=== PATIENT | female | born 1955 | race Caucasian/White ===

== ENCOUNTER 2016-04-21 13:11 | Emergency (ER) | payer OTHER ==
[~2016-04-21] VITALS: Ht 165.1 cm; Wt 120.2 kg
[~2016-04-21 13:11] MED LIST: BIOTIN1000 MC1 PO; CHILDREN'S ASPI81 M1 PO; DOCUSATE100 MG PO; FLEXERIL10 MG PO; LANTUS SOL100 UNIT/1 SC; LISINOPRIL40 M1 PO; LYRICA150 M1 PO; METFORMIN HCL500 M2 PO; MULTIVITAMIN1 TAB PO; TRADJENTA5 M1 PO; TYLENOL #31 TAB PO; VITAMIN D-32000 UNIT PO; VITAMIN D50000 IU PO; XANAX0.5 MG PO
[2016-04-21 13:17] VITALS: BP 183/86
--- NOTE | 2016-04-21 14:01 | ED MVC/FALL/TRAUMA COMPLAINT ---
History of Present Illness General Chief Complaint: Fall Stated Complaint: FALL ON ICE OUTSIDE [facility] Source: patient Exam Limitations: no limitations Allergies Coded Allergies: NO KNOWN ALLERGIES (07/17/10) Reconcile Medications Alprazolam 0.5 MG TABLET 1 TAB PO DAILY NEEDED PRN ANXIETY (Reported) Aripiprazole (Abilify) 10 MG TABLET 1 TAB PO QPM MENTAL HEALTH (Reported) Aspirin (Children's Aspirin) 81 MG TAB.CHEW 1 TAB PO DAILY HEART HEALTH ( Reported) Biotin 1,000 MCG TAB.CHEW 1 TAB PO DAILY SUPPLEMENT (Reported) Cholecalciferol (Vitamin D3) (Vitamin D-3) 2,000 UNIT TABLET 1 TAB PO DAILY SUPPLEMENT (Reported) Insulin Glargine,Hum.rec.anlog (Lantus Solostar) (Unknown Strength) INSULN.PEN (Unknown Dose) SC QPM DM (Reported) Linagliptin (Tradjenta) 5 MG TABLET 1 TAB PO DAILY DM (Reported) Lisinopril 40 MG TABLET 1 TAB PO DAILY HEART (Reported) Metformin HCl (Metformin HCl ER) 500 MG TAB.ER.24 2 TAB PO DAILY DIABETES ( Reported) Pregabalin (Lyrica) 150 MG CAPSULE 1 CAP PO BID PAIN (Reported) Triage Note: 60 PAIN S/P FALL ON ICE. PT WAS GETTING OUT OF TAXI AND SLIPPED STRIKING L SIDED HEAD ON TAXI CAB. DENIES LOC. DENIES OTHER COMPLAINTS. SPEAKING CLEARLY WITH NO NEURO DEFICITS NOTED. Triage Nurses Notes Reviewed? yes HPI: This patient is a 60-year-old female who presented to the emergency department today brought in by ambulance for evaluation of head strike. The patient reported that she was getting out of the taxicab at [facility] just prior to arrival when she slipped on ice and struck the left side of her head on the taxi. She denied loss of consciousness. She reported that she does feel some pressure behind her eye and 7 out of 10 pain over the left side of her head. The pain is nonradiating and constant. No provoking or palliative factors. She refused any medication for pain here in the emergency department. The patient denied any dizziness, lightheadedness, headache, blurry vision, chest pain, difficult to breathing, or any numbness or tingling in her extremities. (GILBERT MCCONNELL,ESTELLE) Vital Signs & Intake/Output Vital Signs & Intake/Output ED Intake and Output 04/22 0000 04/21 1200 Intake Total Output Total Balance Patient 265 lb Weight Past History Travel History Traveled to [place] past 21 day No Medical History Any Pertinent Medical History? see below for history Neurological: DIABETIC NEUROPATHY EENT: diabetic retinopathy Cardiovascular: hypertension Respiratory: NONE Gastrointestinal: NONE Hepatic: NONE Renal: CYSTS Musculoskeletal: chronic back pain Psychiatric: NONE Endocrine: diabetes Blood Disorders: anemia History of CDIFF: Yes Surgical History Surgical History: non-contributory Psychosocial History What is your primary language Stateless Tobacco Use: Quit >30 days ago Family History Hx Contributory? No (ESTELLE HUNT PA-C) Review of Systems Review of Systems Constitutional: Reports: no symptoms. Eyes: Reports: no symptoms. Ears, Nose, Throat, Mouth: Reports: no symptoms. Respiratory: Reports: no symptoms. Cardiovascular: Reports: no symptoms. Gastrointestinal/Abdominal: Reports: no symptoms. Musculoskeletal: Reports: see HPI. Skin: Reports: no symptoms. Neurological/Psychological: Reports: see HPI. All Other Systems: Reviewed and Negative (ESTELLE HUNT PA-C) Physical Exam Physical Exam General Appearance: well developed/nourished, no apparent distress, alert, awake Comments: Well-developed well-nourished person in no acute distress HEENT: Normal EENT exam, head normocephalic/atraumatic with no bony deformity/ step-off of the skull, no tenderness to palpation of the scalp, moist mucous membranes PERRLA bilaterally. EOMI bilaterally with no nystagmus Nose is atraumatic. Neck: Supple, no lymphadenopathy. No midline tenderness. Back: Normal inspection. Normal gait Respiratory: No respiratory distress. Speaking sentences Extremity: Normal and equal pulses. 5 out of 5 harbor engineer strength bilaterally Neuro: Alert oriented x3, motor sensory normal, cranial nerves II through XII grossly intact. Skin: No appreciable rash on exposed skin, skin is warm and dry. Psych: Mood and affect is normal Core Measures ACS in differential dx? No Severe Sepsis Present: No Septic Shock Present: No (ESTELLE HUNT PA-C) Progress Differential Diagnosis: abd injury, C/T/L spine injury, ext injury, ICH, pelvis injury, pnemothorax, spinal cord injury Plan of Care: Orders Procedure Date/time Status CT HEAD WO IV CONTRAST 04/[address] MAXILLOFACIAL W/O CON 04/[address] CERV SPINE WO IV CONTRAST 04/21 1356 Active Diagnostic Imaging: Viewed by Me: CT Scan. Discussed w/RAD: CT Scan. Radiology Impression: PATIENT: FAM SANCHEZ PRESENT AGE : 60 PATIENT ACCOUNT NO: [id number] : 57 LOCATION: [facility] ORDERING PHYSICIAN: ESTELLE HUNT PA-C SERVICE DATE: 04/21/16 EXAM TYPE: CAT - CT CERV SPINE WO IV CONTRAST; CT HEAD WO IV CONTRAST; CT MAXILLOFACIAL W/O CON CT HEAD WITHOUT IV CONTRAST CT CERVICAL SPINE WITHOUT IV CONTRAST CT MAXILLOFACIAL WITHOUT IV CONTRAST INDICATION: Fall with head strike. COMPARISON: Head CT and maxillofacial CT 03/07/2010. TECHNIQUE: Multidetector CT acquisitions of the head, maxillofacial region, and cervical spine were obtained without IV contrast. Multiplanar reformats were acquired and utilized for image interpretation. FINDINGS: HEAD: There is no intracranial hemorrhage, hydrocephalus, extra-axial surface collection, midline shift, or other herniation pattern. Still to white matter differentiation is diffusely maintained without evidence of an evolved acute territorial infarct. The basilar cisterns are preserved. No significant soft tissue abnormality. No acute osseous abnormality. Hyperostosis frontalis interna. The paranasal sinuses and the mastoid air cells are well-aerated. MAXILLOFACIAL: The mandible, maxilla, pterygoid plates, nasal bones, zygomatic arches, paranasal sinus hernandez, and bony orbits are intact. No acute osseous abnormality within the maxillofacial region. The paranasal sinuses and mastoid air cells remain well-aerated. No significant soft tissue findings. There is significant periapical lucency adjacent to the roots of the right first mandibular molar. CERVICAL SPINE: Reversal of the cervical lordosis. Apparent prevertebral soft tissue thickening on the sagittal series is explained by a retropharyngeal course of the common carotid arteries and carotid bifurcations spanning the C2-C7 levels. There is solid interbody fusion at C5-C6 and there is severe disc space loss There is no acute fracture and there is no acute subluxation. The craniocervical and atlantoaxial articulations are normal. There is no prevertebral soft tissue swelling. No significant soft tissue abnormality within the neck. The visualized lung apices are clear. IMPRESSION: 1. No acute intracranial abnormality. 2. No acute osseous abnormality within the cervical spine. Retropharyngeal course of the common carotid arteries and the carotid bifurcations spanning the C2-C7 levels. Solid interbody fusion at C5-C6 and severe spondylosis at C6-C7. 3. No acute osseous abnormality within the maxillofacial region. DICTATED BY: CASSIE MCFARLANE MD DATE/TIME DICTATED:04/21/161435 INFORMATION SYSTEMS CONSULTANT:NICK DATE/TIME TRANSCRIBED:04/21/161435 CONFIDENTIAL, DO NOT COPY WITHOUT APPROPRIATE AUTHORIZATION. <Electronically signed in Other Vendor System> SIGNED BY: CASSIE MCFARLANE MD 04/21/16 5918 (ESTELLE HUNT PA-C) Departure Departure Disposition: HOME OR SELF CARE Condition: Stable Clinical Impression Primary Impression: Fall Qualifiers: Encounter type: initial encounter Qualified Code: W19.XXXA - Unspecified fall, initial encounter Referrals: SHIRIN VALLADARES MD (PCP/Family) Additional Instructions: You may take [id number] ibuprofen or Tylenol for pain. Rest. Return for any worsening symptoms or concerns. Departure Forms: Customer Survey General Discharge Information (ESTELLE HUNT PA-C) PA/TELEPHONE DIRECTORY DELIVERER Co-Sign Statement Statement: ED Attending supervision documentation- [] I saw and evaluated the patient. I have also reviewed all the pertinent lab results and diagnostic results. I agree with the findings and the plan of care as documented in the PA's/TELEPHONE DIRECTORY DELIVERER's documentation. [x] I have reviewed the ED Record and agree with the PA's/TELEPHONE DIRECTORY DELIVERER's documentation. [] Additions or exceptions (if any) to the PAs/TELEPHONE DIRECTORY DELIVERER's note and plan are summarized below: [] (CASSIE LITTLEJOHN DO)
[2016-04-21] MEDS ORDERED: ABILIFY10 M1 PO (14:39)
[2016-04-21] MEDS ORDERED: ALPRAZOLAM0.5 M4 PO (14:40)
--- NOTE | 2016-04-21 14:55 | CT SCAN REPORT ---
CT HEAD WITHOUT IV CONTRAST CT CERVICAL SPINE WITHOUT IV CONTRAST CT MAXILLOFACIAL WITHOUT IV CONTRAST INDICATION: Fall with head strike. COMPARISON: Head CT and maxillofacial CT 03/07/2010. TECHNIQUE: Multidetector CT acquisitions of the head, maxillofacial region, and cervical spine were obtained without IV contrast. Multiplanar reformats were acquired and utilized for image interpretation. FINDINGS: HEAD: There is no intracranial hemorrhage, hydrocephalus, extra-axial surface collection, midline shift, or other herniation pattern. Still to white matter differentiation is diffusely maintained without evidence of an evolved acute territorial infarct. The basilar cisterns are preserved. No significant soft tissue abnormality. No acute osseous abnormality. Hyperostosis frontalis interna. The paranasal sinuses and the mastoid air cells are well-aerated. MAXILLOFACIAL: The mandible, maxilla, pterygoid plates, nasal bones, zygomatic arches, paranasal sinus hernandez, and bony orbits are intact. No acute osseous abnormality within the maxillofacial region. The paranasal sinuses and mastoid air cells remain well-aerated. No significant soft tissue findings. There is significant periapical lucency adjacent to the roots of the right first mandibular molar. CERVICAL SPINE: Reversal of the cervical lordosis. Apparent prevertebral soft tissue thickening on the sagittal series is explained by a retropharyngeal course of the common carotid arteries and carotid bifurcations spanning the C2-C7 levels. There is solid interbody fusion at C5-C6 and there is severe disc space loss There is no acute fracture and there is no acute subluxation. The craniocervical and atlantoaxial articulations are normal. There is no prevertebral soft tissue swelling. No significant soft tissue abnormality within the neck. The visualized lung apices are clear. IMPRESSION: 1. No acute intracranial abnormality. 2. No acute osseous abnormality within the cervical spine. Retropharyngeal course of the common carotid arteries and the carotid bifurcations spanning the C2-C7 levels. Solid interbody fusion at C5-C6 and severe spondylosis at C6-C7. 3. No acute osseous abnormality within the maxillofacial region.
== END 2016-04-21 15:11 ==
LOC: ERH 13:11
DX: S09.90XA Unspecified injury of head, initial encounter (principal); W00.0XXA Fall on same level due to ice and snow, initial encounter; Y93.89 Activity, other specified; Y92.9 Unspecified place or not applicable

== ENCOUNTER 2017-02-09 08:13 | Emergency (ER) | payer OTHER ==
[~2017-02-09] VITALS: Ht 165.1 cm; Wt 122.5 kg
[~2017-02-09 08:13] MED LIST changes: +ABILIFY10 M1 PO; +ALPRAZOLAM0.5 M4 PO
--- NOTE | 2017-02-09 08:18 | ED SYNCOPE COMPLAINT ---
History of Present Illness General Chief Complaint: Syncope and Near-Syncope Stated Complaint: BIBA FOR NEAR SYNCOPE Source: patient, old records, EMS Exam Limitations: no limitations Vital Signs & Intake/Output Vital Signs & Intake/Output Vital Signs Date Time Temp Pulse Resp B/P B/P Pulse O2 O2 Flow FiO2 Mean Ox Delivery Rate 02/09 1418 97.5 77 20 124/64 97 02/09 1322 98.6 80 19 168/84 02/09 1322 80 18 168/84 97 Room Air 02/09 1221 98.6 77 20 191/84 96 Room Air 02/09 1220 79 176/86 02/09 1114 84 20 193/88 95 Room Air 02/09 1107 98.7 84 18 193/88 02/09 1005 194/100 02/09 1000 80 18 200/96 02/09 0830 95 Room Air 02/09 0821 97.5 80 20 177/84 97 Room Air Allergies Coded Allergies: NO KNOWN ALLERGIES (07/17/10) Reconcile Medications Aspirin (Children's Aspirin) 81 MG TAB.CHEW 1 TAB PO DAILY HEART HEALTH ( Reported) Fluoxetine HCl 40 MG CAPSULE 2 CAP PO DAILY MENTAL HEALTH (Reported) Insulin Glargine,Hum.rec.anlog (Lantus Solostar) (Unknown Strength) INSULN.PEN 80 UNITS SC QPM DM (Reported) Linagliptin (Tradjenta) 5 MG TABLET 1 TAB PO DAILY DM (Reported) Lisinopril 40 MG TABLET 1 TAB PO DAILY HEART (Reported) Metformin HCl (Metformin HCl ER) 500 MG TAB.ER.24 2 TAB PO DAILY DIABETES ( Reported) Ondansetron (Zofran Odt) 4 MG TAB.RAPDIS 1 TAB SL TID PRN nausea Pregabalin (Lyrica) 150 MG CAPSULE 1 CAP PO BID PAIN (Reported) Triage Note: PT BIBA FROM HOME AFTER HAVING N/V/D FOR A FEW DAYS. PT REPORTS TODAY SHE ALMOST PASSED OUT BECAME DIZZY. PT HAS NOT BEEN TAKING HER MEDS BECAUSE SHE HASN'T BEEN ABLE TO KEEP ANYTHING DOWN. PT WAS HYPERTENSIVE UPON EMS ARRIVAL WITH BP 199/93. PT IS DIABETIC AND HAS NOT BEEN TAKING HER MEDS BS UPON EMS ARRIVAL 285. PT IS ALERT AND ORIENTED UPON ARRIVAL TO ED. Triage Nurses Notes Reviewed? yes Timing: recent history Precipitating Factors: lightheadedness Context: nv Loss of Consciousness: no loss of consciousness Associated Symptoms: nausea/vomiting HPI: 61 year old female with history of DM , htn diabetic retinopathy, neuropathy presents to the ER [facility] for eval complaining of generalized malaise subjective chills weakness nausea vomiting for the past few days associated with a productive cough of clear sputum. The patient states he she has been feeling lightheaded and unable to take any of her medications over the past 3 days including her insulin or lisinopril.. She is only been tolerating saltines she is unable to tolerate anything else. She denies any black or bloody stools no hematemesis. She also reports to urinary frequency. No dysuria or hematuria. no chest pain, no palpitations. (Peter Price) Past History Travel History Traveled to [place] past 21 day No Medical History Any Pertinent Medical History? see below for history Neurological: DIABETIC NEUROPATHY EENT: diabetic retinopathy Cardiovascular: hypertension Respiratory: NONE Gastrointestinal: NONE Hepatic: NONE Renal: CYSTS Musculoskeletal: chronic back pain Psychiatric: NONE Endocrine: diabetes Blood Disorders: anemia History of CDIFF: Yes Surgical History Surgical History: non-contributory Psychosocial History What is your primary language Nepali Tobacco Use: Never used Family History Hx Contributory? No (Peter Price) Review of Systems Review of Systems Constitutional: Reports: see HPI. Comments Review of systems: See HPI, All other systems negative. Constitutional, chills fever,malaise HEENT: no sore throat no congestion, no ear pain Cardiovascular: No chest pain , no palpitation Skin: no rashes, no change in skin Respiratory: No dyspnea cough no sputum GI: nausea vomiting, diarrhea : No dysuria No hematuria, no frequency Muscle skeletal: No joint pain, no back pain, no neck pain Neurologic: , no headache Heme/endocrine: No bruising Immunology: No lymphadenopathy (Peter Price) Physical Exam Physical Exam General Appearance: well developed/nourished, alert, awake Cranial Nerves: normal hearing, normal speech, PERRL Comments: Well-developed well-nourished person in no acute distress HEENT: Normal EENT exam; PERRL, EOMI. HEAD is atraumatic. moist mucous membranes. Neck: Supple, normal range of motion Back: Nontender, Full range of motion Cardiovascular: Regular rate and rhythms no murmurs Respiratory: No respiratory distress. Patient speaking in full complete sentences. Breath sounds clear to auscultation bilaterally: NO W/R/R Abdomen: Soft, Obese, nontender nondistended, no appreciable organomegaly. Normal bowel sounds. No rebound/guarding, No appreciable enlargement of the abdominal aorta Extremity: No edema, full range of motion of extremities Neuro: Alert oriented x3, motor sensory normal,There were no obvious focal neurologic abnormalities. Skin: No appreciable rash on exposed skin, skin is warm and dry. Psych: Mood and affect is normal, memory and judgment is normal. Core Measures ACS in differential dx? Yes CVA/TIA Diagnosis: No Sepsis Present: No Sepsis Focused Exam Completed? No (Bibi MOSS,Peter) Progress Differential Diagnosis: aortic valve, orthostatic syncope, other valvular disease, dehydration, electrolyte abnormality, gastroenteritis, obstruction, dka , hhs, hypertensive urgency, emergency Plan of Care: Orders Procedure Date/time Status Heart Healthy Diet 02/09 D Active LACTIC ACID 02/09 1125 Complete RAPID VIRAL INFLUENZA A 02/09 0850 Complete Telemetry/Labor Relations Officer 02/09 0830 Active Saline Lock 02/09 0825 Active TROPONIN LEVEL 02/09 0825 Complete SERUM OSMOLALITY 02/09 0825 Complete LIPASE 02/09 0825 Complete LACTIC ACID 02/09 0825 Complete COMPREHENSIVE METABOLIC PANEL 02/09 0825 Complete CBC WITHOUT DIFFERENTIAL 02/09 0825 Complete ACETONE 02/09 0825 Complete EKG 02/09 0814 Active Laboratory Tests 02/09/17 1140: Lactic Acid 1.7 02/09/17 0848: Urine Color Cancelled, Urine Clarity Cancelled, Urine pH Cancelled, Ur Specific [place] Cancelled, Urine Protein Cancelled, Urine Ketones Cancelled, Urine Nitrite Cancelled, Urine Bilirubin Cancelled, Urine Urobilinogen Cancelled, Ur Leukocyte Esterase Cancelled, Ur Microscopic Cancelled, Urine Hemoglobin Cancelled, Urine Glucose Cancelled 02/09/17 0835: Anion Gap 11, Estimated GFR > 60, BUN/Creatinine Ratio 18.8, Glucose 260 H, Serum Osmolality 300 H, Lactic Acid 2.4 H, Calcium 8.7, Total Bilirubin 1.1, AST 25, ALT 35, Alkaline Phosphatase 72, Troponin I 0.03, Total Protein 7.1, Albumin 3.7, Globulin 3.4, Albumin/Globulin Ratio 1.1, Lipase 66, CBC w Diff NO MAN DIFF REQ, RBC 5.28, MCV 68.6 L, MCH 21.5 L, RDW 15.6 H, MPV 9.2, Gran % 87.9 H, Lymphocytes % 8.5 L, Monocytes % 3.0, Eosinophils % 0.2, Basophils % 0.4, Absolute Granulocytes 10.5 H, Absolute Lymphocytes 1.0 L, Absolute Monocytes 0.4, Absolute Eosinophils 0, Absolute Basophils 0.1, PUBS MCHC 31.4 L , Acetone Level NEGATIVE Microbiology 02/09 09 NASOPHARYN: Influenza Virus A & B Rapid Smear - COMP pt resting in nad at this time, iv fluids, zofran 4mg iv ct and xray ordered ORTHOS NEG 940 pt resting in nad, has had no episodes of vomiting diarrhea here. resting in nad. d/w pt all o anny labs to date 1020 d/w the pt her ct results she is resting in nad at thsit lizzy, denies nausea , we will trial her po chellenge with her morning regular medications. she feels comfortable with plan 1130 pt resting in nad, pt tolerated po challenge and was able to take her medications 1330 patient resting in no apparent distress, Pt ambulatory here in the ER with steady gait without public health assistant. blood pressures responding with IV labetalol she is without any complaints currently no chest pain abdominal pain she's had no vomiting here she ate lunch without difficulty. Case discussed with Dr. Hightower agrees with plan. Discussed with patient plan of care need for clear liquids advance as tolerated we'll send her home with Zofran, return precautions were discussed at least advise close follow-up with her primary care physician tomorrow or Tuesday. She feels comfortable with plan. Diagnostic Imaging: Viewed by Me: CT Scan. Discussed w/RAD: CT Scan. Radiology Impression: PATIENT: FAM SANCHEZ PRESENT AGE : 61 PATIENT ACCOUNT NO: [id number] : 57 LOCATION: [facility] ORDERING PHYSICIAN: Peter MOSS SERVICE DATE: 02/09/17 EXAM TYPE: CAT - CT ABD & PELVIS W/O IV CONTRAS EXAMINATION: CT ABDOMEN AND PELVIS WITHOUT CONTRAST CLINICAL INFORMATION: Nausea, vomiting, lightheaded COMPARISON: 06/03/2013 TECHNIQUE: Multidetector volumetric imaging was performed from the superior aspect of the liver through the pubic symphysis. Sagittal and coronal reformatted images were obtained on the technologist's workstation. DLP: 1667.89 mGy-cm FINDINGS: LUNG BASES: The visualized lung bases demonstrate subsegmental atelectasis. Coronary artery calcifications are present. LIVER, GALLBLADDER, AND BILIARY TREE: The liver is normal in size, shape, and attenuation. No focal hepatic lesion or biliary ductal dilatation is identified. Cholelithiasis is noted. PANCREAS: Unremarkable. SPLEEN: Unremarkable. ADRENAL GLANDS: Unremarkable. KIDNEYS AND URETERS: There are punctate calcifications in the upper kidneys, which may be vascular in nature. No hydronephrosis or ureteral calculi bilaterally. There is a suspected mid left renal cyst measuring approximately 2.0 cm in maximal dimension. BLADDER: Unremarkable. GASTROINTESTINAL TRACT: A duodenal diverticulum is noted. No evidence of bowel obstruction. No abnormal bowel wall thickening is seen. There is a moderate amount of stool throughout the colon. The appendix appears collapsed. No free fluid or free air is seen. ABDOMINAL WALL: No significant hernia is appreciated. LYMPH NODES: Normal. VASCULAR: There is atherosclerotic calcification along the aorta. PELVIC VISCERA: Patient is status post hysterectomy. OSSEOUS STRUCTURES: Scattered degenerative changes are noted in the spine. IMPRESSION: 1. No acute abnormality identified in the bowel. Moderate volume of stool. 2. Cholelithiasis. 3. Coronary artery calcifications. Correlation with cardiac risk factors is recommended. DICTATED BY: Richard Aquino MD DATE/TIME DICTATED: 02/09/17952 MANAGER MARKETING COMMUNICATION:NICK DATE/TIME TRANSCRIBED:02/09/17952 CONFIDENTIAL, DO NOT COPY WITHOUT APPROPRIATE AUTHORIZATION. <Electronically signed in Other Vendor System> SIGNED BY: Richard Aquino MD 02/09/17 1006 Initial ED EKG: normal intervals, normal p-waves, normal QRS complex, normal sinus rhythm (80) Prior EKG: unchanged Rhythm Strip: normal sinus rhythm (Peter Price) Departure Departure Disposition: HOME OR SELF CARE Condition: Stable Clinical Impression Primary Impression: Nausea & vomiting Qualifiers: Vomiting type: unspecified Vomiting Intractability: non-intractable Qualified Code: R11.2 - Nausea with vomiting, unspecified Secondary Impressions: Cholelithiasis Qualifiers: Cholecystitis presence: without cholecystitis Biliary obstruction: without biliary obstruction Hypertension Qualifiers: Hypertension type: unspecified Qualified Code: I10 - Essential ( primary) hypertension Lactic acidosis Referrals: Aminata GONSALEZ,Fabienne Sullivan (PCP/Family) Additional Instructions: zofran for nausea. bland diet, clear liquids, advance as tolerated. follow up with your pmd this week for reevaluation. return at anytime sooner if your symptoms persist or you have any other concerns Departure Forms: Customer Survey General Discharge Information Prescriptions: Current Visit Scripts Ondansetron (Zofran Odt) 1 TAB SL TID PRN nausea #10 TAB (Peter Price) PA/HEALTH CLAIMS EXAMINER Co-Sign Statement Statement: ED Attending supervision documentation- [] I saw and evaluated the patient. I have also reviewed all the pertinent lab results and diagnostic results. I agree with the findings and the plan of care as documented in the PA's/HEALTH CLAIMS EXAMINER's documentation. [X] I have reviewed the ED Record and agree with the PA's/HEALTH CLAIMS EXAMINER's documentation. [] Additions or exceptions (if any) to the PAs/HEALTH CLAIMS EXAMINER's note and plan are summarized below: [] (Campbell GONSALEZ,Lavon Owens)
[2017-02-09 08:49] LABS: ABSOLUTE BASOPHIL COUNT 0.1 /CUMM (0.0-0.2); ABSOLUTE EOSINOPHIL COUNT 0 /CUMM (0.0-0.7); ABSOLUTE GRANULOCYTE CT 10.5 /CUMM (1.4-6.5); ABSOLUTE MONOCYTE COUNT 0.4 /CUMM (0.10-0.60); BASOPHIL % 0.4 % (0.0-2.0); EOSINOPHIL % 0.2 % (0-5); HEMATOCRIT 36.2 % (37-47); MEAN CORPUSCULAR HGB 21.5 PG (27.0-31.0); MEAN CORPUSCULAR HGB CONC 31.4 G/DL (33.0-37.0); MEAN CORPUSCULAR VOLUME 68.6 FL (81.0-99.0); MEAN PLATELET VOLUME 9.2 FL (7.4-10.4); PLATELET COUNT 217 /CUMM (130-400); RBC DISTRIBUTION WIDTH 15.6 % (11.5-14.5); RED BLOOD CELL CT 5.28 /CUMM (4.20-5.40); WHITE BLOOD CELL COUNT 11.9 /CUMM (4.8-10.8)
[2017-02-09 09:09] LABS: GRANULOCYTE % 87.9 % (42.2-75.2)
--- NOTE | 2017-02-09 09:33 | RADIOLOGY REPORT ---
EXAMINATION: XR PORTABLE CHEST CLINICAL INFORMATION: Cough, lightheaded COMPARISON: 03/29/2015 TECHNIQUE: Portable frontal view of the chest was obtained. FINDINGS: The lungs are clear with no focal consolidation. No evidence of pneumothorax, pulmonary edema, or pleural effusions. The cardiomediastinal silhouette is unremarkable. No acute osseous findings. IMPRESSION: No acute cardiopulmonary findings.
--- NOTE | 2017-02-09 10:06 | CT SCAN REPORT ---
EXAMINATION: CT ABDOMEN AND PELVIS WITHOUT CONTRAST CLINICAL INFORMATION: Nausea, vomiting, lightheaded COMPARISON: 06/03/2013 TECHNIQUE: Multidetector volumetric imaging was performed from the superior aspect of the liver through the pubic symphysis. Sagittal and coronal reformatted images were obtained on the technologist's workstation. DLP: 1667.89 mGy-cm FINDINGS: LUNG BASES: The visualized lung bases demonstrate subsegmental atelectasis. Coronary artery calcifications are present. LIVER, GALLBLADDER, AND BILIARY TREE: The liver is normal in size, shape, and attenuation. No focal hepatic lesion or biliary ductal dilatation is identified. Cholelithiasis is noted. PANCREAS: Unremarkable. SPLEEN: Unremarkable. ADRENAL GLANDS: Unremarkable. KIDNEYS AND URETERS: There are punctate calcifications in the upper kidneys, which may be vascular in nature. No hydronephrosis or ureteral calculi bilaterally. There is a suspected mid left renal cyst measuring approximately 2.0 cm in maximal dimension. BLADDER: Unremarkable. GASTROINTESTINAL TRACT: A duodenal diverticulum is noted. No evidence of bowel obstruction. No abnormal bowel wall thickening is seen. There is a moderate amount of stool throughout the colon. The appendix appears collapsed. No free fluid or free air is seen. ABDOMINAL WALL: No significant hernia is appreciated. LYMPH NODES: Normal. VASCULAR: There is atherosclerotic calcification along the aorta. PELVIC VISCERA: Patient is status post hysterectomy. OSSEOUS STRUCTURES: Scattered degenerative changes are noted in the spine. IMPRESSION: 1. No acute abnormality identified in the bowel. Moderate volume of stool. 2. Cholelithiasis. 3. Coronary artery calcifications. Correlation with cardiac risk factors is recommended.
[2017-02-09] MEDS ORDERED: FLUOXETINE HCL40 M1 PO (10:07)
[2017-02-09] MEDS ORDERED: ZOFRAN ODT4 M1 SL (13:45)
[2017-02-09 14:18] VITALS: BP 124/64
== END 2017-02-09 15:01 ==
LOC: ERH 08:13
PROVIDERS: Physician Assistant Medical
DX: K80.20 Calculus of gallbladder without cholecystitis without obstruction (principal); E87.2 Acidosis; I10 Essential (primary) hypertension
CPT/HCPCS: 71045; 74176; 87804; 87804-59; 93005; 93010; 96361; 96372; 96374; 96375; J2405

== ENCOUNTER 2017-08-05 17:02 | Inpatient (IN) | payer OTHER ==
[~2017-08-05] VITALS: Ht 165.1 cm; Wt 123.5 kg
[~2017-08-05 17:02] MED LIST changes: +FLUOXETINE HCL40 M1 PO; +LASIX20 M1 PO; +ZOFRAN ODT4 M1 SL
--- NOTE | 2017-08-05 17:18 | ED GENERAL ADULT ---
History of Present Illness General Chief Complaint: General Adult Stated Complaint: BIBA N/V, LETHARGY/WEAKNESS Source: patient, EMS Exam Limitations: confusion Vital Signs & Intake/Output Vital Signs & Intake/Output Vital Signs Date Time Temp Pulse Resp B/P B/P Pulse O2 O2 Flow FiO2 Mean Ox Delivery Rate 08/05 1823 98.6 87 20 155/80 96 Room Air 08/05 1706 98.0 86 20 164/76 96 Room Air Allergies Coded Allergies: NO KNOWN ALLERGIES (07/17/10) Reconcile Medications Aspirin (Children's Aspirin) 81 MG TAB.CHEW 1 TAB PO DAILY HEART HEALTH ( Reported) Fluoxetine HCl 40 MG CAPSULE 2 CAP PO DAILY MENTAL HEALTH (Reported) Furosemide (Lasix) 20 MG TABLET 2 TAB PO DAILY CHF Insulin Glargine,Hum.rec.anlog (Lantus Solostar) (Unknown Strength) INSULN.PEN 80 UNITS SC QPM DM (Reported) Linagliptin (Tradjenta) 5 MG TABLET 1 TAB PO DAILY DM (Reported) Lisinopril 40 MG TABLET 1 TAB PO DAILY HEART (Reported) Metformin HCl (Metformin HCl ER) 500 MG TAB.ER.24 2 TAB PO DAILY DIABETES ( Reported) Ondansetron (Zofran Odt) 4 MG TAB.RAPDIS 1 TAB SL TID PRN nausea Ondansetron (Zofran Odt) 4 MG TAB.RAPDIS 1 TAB SL TID PRN nausea Pregabalin (Lyrica) 150 MG CAPSULE 1 CAP PO BID PAIN (Reported) Triage Note: PT TO ED FOR N/V/D Triage Nurses Notes Reviewed? yes HPI: Patient is a 62-year-old female with past medical history of hypertension and diabetes who is brought in by EMS today after her called for reported confusion. At the time of EMS arrival, they noted house that in their words "should be condemned." They report that there were dog feces covering entirety of the first floor, and that the entire house was in squalor. The patient continues to be somewhat confused, but is alert and responds to questions. She is unable to add further details regarding her HPI or ROS. Past History Travel History Traveled to [place] past 21 day No Medical History Any Pertinent Medical History? see below for history Neurological: DIABETIC NEUROPATHY EENT: diabetic retinopathy Cardiovascular: hypertension Respiratory: NONE Gastrointestinal: NONE Hepatic: NONE Renal: CYSTS Musculoskeletal: chronic back pain Psychiatric: NONE Endocrine: diabetes Blood Disorders: anemia History of CDIFF: Yes Surgical History Surgical History: non-contributory Psychosocial History What is your primary language Kinyarwanda Tobacco Use: Quit >30 days ago ETOH Use: denies use Illicit Drug Use: denies illicit drug use Family History Hx Contributory? No Review of Systems Review of Systems Constitutional: Reports: see HPI, malaise, weakness. Comments Other than the features mentioned in history of present illness above, a detailed review of systems was not possible secondary to the patient's confusion Physical Exam Physical Exam General Appearance: well developed/nourished, no apparent distress, alert, awake , obese Comments: Gen.: Significant only malodorous and disheveled. HEENT: Inspection of the head reveals a normocephalic cranium with no signs of trauma. Ophtho: Extraocular muscles are intact and pupils are equal and reactive to light bilaterally with no afferent pupillary defect. The sclera are noninjected , and there is no obvious discharge. Neck: The trachea is midline, there is no obvious asymmetry or mass over the thyroid, and there is no wincing on palpation of the midline cervical spine. Respiratory: The lungs are clear and equal to auscultation bilaterally without wheezes, rales, or rhonchi. The patient exhibits no signs of labored breathing. Cardiac: Regular rhythm and non-tachycardic without appreciable murmurs on auscultation. No obvious JVD. GI: Examination of the abdomen reveals no significant wincing on deep palpation. : Deferred Neuro: Focused neurologic examination was attempted, but secondary to the patient's confusion, it was extremely limited. Features that were obtainable included equal pupils and a lack of gross focal motor abnormality on patient's limited passive motion. Behavioral: Calm. Dermatologic: Dermatologic examination reveals no diffuse rashes or exanthems, no petechiae, no ecchymoses, and no other signs of erythema or infection. Core Measures ACS in differential dx? No CVA/TIA Diagnosis: No Sepsis Present: No Sepsis Focused Exam Completed? No Progress Differential Diagnoses I considered the following diagnoses in my evaluation of the patient: UTI, pneumonia, uremia, acute kidney injury, which led abnormality, multiple other possibilities. Plan of Care: Orders Procedure Date/time Status URINALYSIS 08/06 1711 Active COMPREHENSIVE METABOLIC PANEL 08/06 1711 Complete CBC WITHOUT DIFFERENTIAL 08/06 1711 Complete EKG 08/06 1711 Active Laboratory Tests 08/05/17 1753: Anion Gap 10, Estimated GFR 46 L, BUN/Creatinine Ratio 25.8 H, Glucose 238 H, Calcium 8.7, Total Bilirubin 1.2, AST 35, ALT 49, Alkaline Phosphatase 73, Total Protein 6.9, Albumin 3.4 L, Globulin 3.5, Albumin/Globulin Ratio 1.0 L 08/05/17 1725: CBC w Diff NO MAN DIFF REQ, RBC 5.46 H, MCV 67.8 L, MCH 20.8 L, MCHC 30.7 L, RDW 17.6 H, MPV 9.4, Gran % 83.0 H, Lymphocytes % 9.1 L, Monocytes % 7.0, Eosinophils % 0.7, Basophils % 0.2, Absolute Granulocytes 10.4 H, Absolute Lymphocytes 1.1 L, Absolute Monocytes 0.9 H, Absolute Eosinophils 0.1, Absolute Basophils 0 Initial ED EKG: ECG performed at 1720, redness 1721, normal sinus rhythm, P waves, DC intervals, QRS and QTC intervals are normal, no ST segment abnormalities, no change from prior study dated 08/01/2017 Comments: Patient was brought in today after her called for acute confusion. She was off her baseline and continued to be confused at arrival. She was unable to communicate any specific complaints. Laboratory studies showed a doubling of her BUN and a 50% increase in her serum creatinine, representing acute kidney injury. Chest x-ray negative, ECG unremarkable. Patient is unsteady on her feet and unsafe at home. Hospitalized for further treatment. Departure Departure Time of Disposition: 1844 Disposition: STILL A PATIENT Condition: Guarded Clinical Impression Primary Impression: Falls Qualifiers: Encounter type: subsequent encounter Qualified Code: W19.XXXD - Unspecified fall, subsequent encounter Referrals: Aminata GONSALEZ,Fabienne Sullivan (PCP/Family) Departure Forms: Customer Survey General Discharge Information Admission Note Spoke With: Yaz Riley MD Documentation of Exam: Documentation of any treatments & extenuating circumstances including Concerns Regarding Discharge (functional status, medication knowledge or non-compliance, living conditions, etc.) that warrant an admission rather than observation: Patient has acute kidney injury with double the blood urea nitrogen and a 50% increase in her serum creatinine with corresponding confusion, weakness, inability to ambulate, and inability to perform her activities of daily living. I feel that she represents an unsafe discharge, and will require IV fluid resuscitation, repeat laboratory studies, frequent neuro checks, physical therapy evaluation, case management consultation for her very poor home situation and the possible need for placement. I feel it is unlikely that she will be able to turn around in 48-72 hours thus hospitalization is warranted. Critical Care Note Critical Care Note Critical Care Time: non-applicable
[2017-08-05 17:32] LABS: ABSOLUTE BASOPHIL COUNT 0 /CUMM (0.0-0.2); ABSOLUTE EOSINOPHIL COUNT 0.1 /CUMM (0.0-0.7); ABSOLUTE GRANULOCYTE CT 10.4 /CUMM (1.4-6.5); ABSOLUTE LYMPH COUNT 1.1 /CUMM (1.2-3.4); ABSOLUTE MONOCYTE COUNT 0.9 /CUMM (0.10-0.60); BASOPHIL % 0.2 % (0.0-2.0); EOSINOPHIL % 0.7 % (0-5); MEAN CORPUSCULAR HGB 20.8 PG (27.0-31.0); MEAN CORPUSCULAR HGB CONC 30.7 G/DL (33.0-37.0); MEAN CORPUSCULAR VOLUME 67.8 FL (81.0-99.0); MEAN PLATELET VOLUME 9.4 FL (7.4-10.4); PLATELET COUNT 226 /CUMM (130-400); RBC DISTRIBUTION WIDTH 17.6 % (11.5-14.5); RED BLOOD CELL CT 5.46 /CUMM (4.20-5.40); WHITE BLOOD CELL COUNT 12.5 /CUMM (4.8-10.8)
--- NOTE | 2017-08-05 18:13 | RADIOLOGY REPORT ---
EXAMINATION: XR PORTABLE CHEST CLINICAL INFORMATION: AMS. Presumptive diagnosis: Pneumonia. COMPARISON: Chest 08/01/2017. TECHNIQUE: Portable frontal view of the chest was obtained. FINDINGS: The heart is normal in size. There is no congestion or focal consolidation. The bony thorax is unremarkable. IMPRESSION: No acute cardiopulmonary process.
--- NOTE | 2017-08-05 18:58 | History & Physical ---
Yuliet GONSALEZ,[facility] 08/05/17 0113: General Information and HPI MD Statement: I have seen and personally examined FAM KAUR and documented this H&P. The patient is a 62 year old F who presented with a patient stated chief complaint of feeling unwell and not looking like self. Source of Information: patient, family Exam Limitations: no limitations, unable to give history History of Present Illness: Ms Kaur is a 62 year old lady with past medical history of diabetes, hypertension, depression and peripharel vascular disease who was brought into the ED with complaining that she was "not feeling well." She states that she feels that she was hit with a "virus". She states that she has been more lethargic over the last few days. The patient also states that her noted that she "did not look right" and then called the EMS. She endorsed a non productuive cough. Patient was recently seen in the ED on 08/01/2017 where she was complaning of Nausea, vomiting and diahrrea. She states since she got home, her diarhea has impoved although she states she has had decreased PO intake. She also endorses poor medciation compliance stating that she did not want to take her medication. I briefly spoke with the patient's who stated that the patient has looked extremely pale and since been discharged from the ED has not been herself. She also had experienced persistent urinary incontinence and although was prompted to come to the emergency department sooner she was very hesitant. It was also reported that EMS found her home in a derelict state and with dog feces noted all over. Patients PCP in Dr Coates Patients Pole Lift Operator is Dr Lopez. Allergies/Medications Allergies: Coded Allergies: NO KNOWN ALLERGIES (07/17/10) Compliance With Home Meds: GOOD Past History Travel History Traveled to [place] past 21 day No Medical History Neurological: DIABETIC NEUROPATHY EENT: diabetic retinopathy Cardiovascular: hypertension Respiratory: NONE Gastrointestinal: NONE Hepatic: NONE Renal: CYSTS Musculoskeletal: chronic back pain Psychiatric: NONE Endocrine: diabetes Blood Disorders: anemia History of CDIFF: Yes Surgical History Surgical History: non-contributory, knee replacement, Cervical Spine Repain , Meniscus tear Past Family/Social History Psychosocial History Where do you live? Home Who Do You Live With? spouse Services at Home: None Primary Language: Tajik Smoking Status: Former Smoker ETOH Use: denies use Illicit Drug Use: denies illicit drug use Functional Ability ADLs Independent: dressing, eating, toileting, bathing. Ambulation: independent IADLs Independent: shopping, housework, finances, food prep, telephone, transportation , medication admin. Employment History Employment Retired Review of Systems Review of Systems Constitutional: Reports: see HPI. Exam & Diagnostic Data Last 24 Hrs of Vital Signs/I&O Vital Signs Date Time Temp Pulse Resp B/P B/P Pulse O2 O2 Flow FiO2 Mean Ox Delivery Rate 08/05 1823 98.6 87 20 155/80 96 Room Air 08/05 1706 98.0 86 20 164/76 96 Room Air Physical Exam General Appearance Alert, Oriented X3, Cooperative HEENT Mucous membranes dry Neck Supple, JVD + Cardiovascular Regular Rate, Normal S1, Normal S2 Lungs Clear to Auscultation, Normal Air Movement Abdomen Normal Bowel Sounds, Soft, No Tenderness Neurological Normal Gait, Normal Speech, Strength at 5/5 X4 Ext Extremities Normal Pulses, No Tenderness/Swelling, L>R Vascular Normal Pulses Last 24 Hrs of Labs/Nick: Laboratory Tests 08/05/17 1753: Anion Gap 10, Estimated GFR 46 L, BUN/Creatinine Ratio 25.8 H, Glucose 238 H, Calcium 8.7, Total Bilirubin 1.2, AST 35, ALT 49, Alkaline Phosphatase 73, Total Protein 6.9, Albumin 3.4 L, Globulin 3.5, Albumin/Globulin Ratio 1.0 L 08/05/17 1725: CBC w Diff NO MAN DIFF REQ, RBC 5.46 H, MCV 67.8 L, MCH 20.8 L, MCHC 30.7 L, RDW 17.6 H, MPV 9.4, Gran % 83.0 H, Lymphocytes % 9.1 L, Monocytes % 7.0, Eosinophils % 0.7, Basophils % 0.2, Absolute Granulocytes 10.4 H, Absolute Lymphocytes 1.1 L, Absolute Monocytes 0.9 H, Absolute Eosinophils 0.1, Absolute Basophils 0 Diagnostic Data CXR Results SERVICE DATE: 08/05/17-1711 EXAM TYPE: RAD - XRY-PORTABLE CHEST XRAY EXAMINATION: XR PORTABLE CHEST CLINICAL INFORMATION: AMS. Presumptive diagnosis: Pneumonia. COMPARISON: Chest 08/01/2017. TECHNIQUE: Portable frontal view of the chest was obtained. FINDINGS: The heart is normal in size. There is no congestion or focal consolidation. The bony thorax is unremarkable. IMPRESSION: No acute cardiopulmonary process. DICTATED BY: [place] MD Assessment/Plan Assessment: Ms Kaur is a 62 year old lady with past medical history of diabetes, hypertension, depression and peripharel vascular disease who was brought into the ED with complaining that she was not feeling well. Creatinine is elevated likely due to prerenal azotemia She will benefit from mild fluid hydration and will monitor her creatinine in the morning. Leukocytosis is likely reactive as she has been unable to offer any complaints, We will however make sure her UA and reflex urinary culture did not suggest an underlying infection. #CHERYL #History of Diabetes #Leukocytosis #Urinary incontinence. #Recent Gastroenteritis We will admited the patient to General medicine. Fingersticks 3 times a day at bedtime begin coverage with NovoLog sliding scale. We' will also begin Levemir 40 units twice a day. If sugars remain uncontrolled will may consider endocrinology consultation. Bladder Scan every 8 hours to ensure PVR do not exceed 250 mL. If patient continues to remain incontinent may consider urology consultation in a.m. for urodynamic studies. Renal Ultra sound to rule out hydronephrosis. Urine Culture Urine Lytes May continue home medication. PT consultation in a.m. Repeat CBC and BEP in AM DVT PPX: Lovenox Diet: Consistent Carbohydrate II Patient is a full code As Ranked By This Provider Problem List: 1. Hypertension 2. CHERYL (acute kidney injury) Core Measures/Misc (10/24) Acute Coronary Syndrome ACS Diagnosis: No Congestive Heart Failure Congestive Heart Failure Diagnosis No Cerebrovascular Accident CVA/TIA Diagnosis: No VTE (View Protocol) VTE Risk Factors Age>40 No Mechanical VTE Prophylaxis d/t N/A MechProphylax Ordered No VTE Pharm Prophylaxis d/t NA PharmProphylax ordered Sepsis (View protocol) If YES complete Sepsis Event Note If YES complete Sepsis Event Note Yaz Riley 08/06/17 0236: General Information and HPI Allergies/Medications Home Med list Aspirin (Children's Aspirin) 81 MG TAB.CHEW 1 TAB PO DAILY HEART HEALTH ( Reported) Fluoxetine HCl 40 MG CAPSULE 2 CAP PO DAILY MENTAL HEALTH (Reported) Furosemide (Lasix) 20 MG TABLET 2 TAB PO DAILY CHF Insulin Glargine,Hum.rec.anlog (Lantus Solostar) (Unknown Strength) INSULN.PEN 80 UNITS SC QPM DM (Reported) Linagliptin (Tradjenta) 5 MG TABLET 1 TAB PO DAILY DM (Reported) Lisinopril 40 MG TABLET 1 TAB PO DAILY HEART (Reported) Metformin HCl (Metformin HCl ER) 500 MG TAB.ER.24 2 TAB PO DAILY DIABETES ( Reported) Metoprolol Succinate 25 MG TAB 1 TAB PO DAILY heart health (Reported) Ondansetron (Zofran Odt) 4 MG TAB.RAPDIS 1 TAB SL TID PRN nausea Ondansetron (Zofran Odt) 4 MG TAB.RAPDIS 1 TAB SL TID PRN nausea Pregabalin (Lyrica) 150 MG CAPSULE 1 CAP PO BID PAIN (Reported) Core Measures/Misc (10/24) Acute Coronary Syndrome ACS Diagnosis: No Congestive Heart Failure Congestive Heart Failure Diagnosis No Cerebrovascular Accident CVA/TIA Diagnosis: No VTE (View Protocol) VTE Risk Factors Immobility Sepsis (View protocol) Sepsis Present: No If YES complete Sepsis Event Note If YES complete Sepsis Event Note Attending MD Review Statement Attending Statement Attending MD Statement: examined this patient, discuss w/resident/PA/RAISIN WASHER, agreed w/resident/PA/RAISIN WASHER, reviewed EMR data (avail), reviewed images, amended to note Attending Assessment/Plan: CC: weakness and lethargy PMH: DM, HTN, PVD, depression, suspected HFrEF According to patient and her called EMS stating that "she did not look right". Patient has been feeling poorly, weak and lethargic. Patient had nausea vomiting and diarrhea for last few days which currently resolved. Patient was seen in ER on August 01 for "not feeling right". , Nausea, vomiting and diarrhea, was prescribed Zofran at that time. But proBNP was elevated so patient was prescribed Lasix. Patient did not take this medication after going home. When EMS reached patient's home, they noticed that there was dog stool in all over the house, living in very unhygienic condition. Patient cannot ambulate much, complains of pain and numbness in bilateral feet, does not walk with walker instead use a support of wall. Patient also has urinary incontinence. Patient also states that her legs are getting swollen, left more than right. When asked about the dogs she states that those are indoor dogs and they have "indoor stool wally (?)" Vitals: Temperature 98.0, pulse 86, RR 20, blood pressure 164/76, saturating 96% on room air. On exam: A O 3, cooperative, no acute distress, neck supple, JVD could not be appreciated, no lymphadenopathy, mucosa moist, no focal neurological deficit, left lower extremity is enlarged compared to right, no obvious skin rashes or inflammation CVS: S1-S2, RRR. RS: Clear to auscultate bilaterally. Abdomen: Soft , morbidly obese, bowel sounds present. CXR: No acute cardiopulmonary process. Imaging done on August 01 CXR: No acute cardiopulmonary findings. CT head: No acute intracranial pathology CT abdomen and pelvis with oral and IV contrast 1. No acute abnormality of the abdomen or pelvis. 2. Cholelithiasis. Assessment and plan 62-year-old female with above-mentioned past medical history came to ER for vague complaints of feeling weak and lethargic. She recently had nausea vomiting diarrhea and was seen in ER on for those complaints. She was prescribed Zofran and that time, currently her symptoms resolved. During that visit she was found to have elevated proBNP, she received 1 dose of Lasix and was prescribed by mouth Lasix to be taken at home which she was not taking. Currently patient may be failing her lethargy and weakness secondary to dehydration, does not appear to be in volume overload. Her proBNP is decreased from previous ER visit. Patient's creatinine is mildly elevated, probably secondary to Lasix and IV contrast that she received on . She received a liter normal saline in ER. Currently she appears to euvolemic. Mild leukocytosis could be secondary to recent gastroenteritis. Patient had stress test done in March 2017 where she had ejection fraction of 39% and large fixed perfusion abnormality. Patient sees Dr. Joel outpatient. This patient may be having heart failure and CAD that she is not mentioning in the history. Patient also has lower extremity edema left more than right, urinary incontinence, unsteady gait with bilateral feet numbness and pain. Additionally patient was found to be living in very unhygienic condition and was not deemed safe for home discharge. No evidence of hydrocephalus on recent CT scan (for urinary incontinence and gait instability) + Acute kidney injury + Leukocytosis probably secondary to recent gastroenteritis + Urinary incontinence + History of DM, HTN, PVD, depression, suspected HFrEF - Admit to general medicine - Saline locked IV - Strict I's and O's - Post void bladder scan - DVT Doppler bilateral lower extremity - Continue basal and bolus insulin - PT evaluation - Case management consult :? Short-term rehabilitation placement - delivery sales worker consult : ? Home living conditions
[2017-08-05 21:23] VITALS: BP 160/90
--- NOTE | 2017-08-06 02:39 | Admission Certification ---
Admission Certification Certification Statement - As attending physician, I certify that at the time of - admission, based on clinical presentation, severity of - symptoms, need for further diagnostic testing and - therapeutic interventions, and risk of adverse outcomes - without in-hospital treatment, in my clinical assessment, - this patient requires an acute hospital stay for a minimum - of two nights or longer. I have also considered psychsocial - factors such as support system, advanced age, financial - issues, cognitive issues, and failed out-patient treatments, - past re-admission history, safety of patient, and lack of - compliance as applicable. Specific rationale supporting this admission is: CHERYL, gait instabilty
--- NOTE | 2017-08-06 04:10 | PN- Housestaff ---
Yuliet GONSALEZ,[facility] 08/06/17 0410: Subjective Follow-up For: CHERYL Subjective: Ms Kaur was seen and examined this morning. She is resting comfortably in bed. Denies any issues overnight and states that she was able to get some rest. She is aware that she has been incontinent of urine several times. She continues to refuse straight cath or a Fuentes. She denies any fever, chills, nausea, vomiting. Review of Systems Constitutional: Reports: see HPI. Objective Last 24 Hrs of Vital Signs/I&O Vital Signs Date Time Temp Pulse Resp B/P B/P Pulse O2 O2 Flow FiO2 Mean Ox Delivery Rate 08/06 616 98.7 81 18 152/90 92 Room Air 08/05 2123 98.5 86 18 160/90 92 08/05 1936 98.2 86 20 171/62 95 Room Air 08/05 1823 98.6 87 20 155/80 96 Room Air 08/05 1706 98.0 86 20 164/76 96 Room Air Intake & Output 08/06 1600 08/06 0800 08/06 0000 Intake Total 200 1200 Output Total Balance 200 1200 Intake, IV 1000 Intake, Oral 200 200 Number 0 Bowel Movements Patient 127.006 kg Weight Weight Reported by Patient Measurement Method Physical Exam General Appearance: Alert, Oriented X3, Cooperative HEENT: Mucous Membr. moist/pink Cardiovascular: Regular Rate, Normal S1 Lungs: Clear to Auscultation, Normal Air Movement Abdomen: Normal Bowel Sounds, Soft, No Tenderness Neurological: Normal Gait, Normal Speech Extremities: Edema improved. ALPS on Vascular: Pulses Symmetrical Current Medications: Current Medications Sig/Pawel Start time Last Medication Dose Route Stop Time Status Admin Enoxaparin Sodium 40 MG DAILY 08/05 2215 AC 08/06 SC 0757 Fluoxetine HCl 80 MG DAILY 08/06 09 AC 08/06 PO 0755 Insulin Aspart 0 TIDAC 08/06 08 AC 08/06 SC 0817 Insulin Aspart 0 AT BEDTIME 08/05 2099 AC SC Insulin Detemir 40 UNITS BID 08/05 2099 AC 08/06 SC 0758 Metoprolol Succinate 25 MG DAILY 08/06 0933 AC PO Pregabalin 150 MG BID 08/05 2100 AC 08/06 PO 0756 Sodium Chloride 1,000 ML Q10H 08/05 2000 DC IV 08/06 0559 Sodium Chloride 1,000 ML BOLUS ONE 08/05 1715 DC 08/05 IV 08/05 1814 1729 Last 24 Hrs of Lab/Nick Results Last 24 Hrs of Labs/Mics: Laboratory Tests 08/06/17 0642: Anion Gap 10, Estimated GFR 56 L, BUN/Creatinine Ratio 26.0 H, CBC w Diff Pending, WBC Pending, RBC Pending, Hgb Pending, Hct Pending, MCV Pending, MCH Pending, MCHC Pending, RDW Pending, Plt Count Pending, MPV Pending 08/05/17 1753: Anion Gap 10, Estimated GFR 46 L, BUN/Creatinine Ratio 25.8 H, Glucose 238 H, Calcium 8.7, Magnesium 1.7, Total Bilirubin 1.2, AST 35, ALT 49, Alkaline Phosphatase 73, Lcl-R-Icubpgopgvc Pept 1050 H, Total Protein 6.9, Albumin 3.4 L, Globulin 3.5, Albumin/Globulin Ratio 1.0 L 08/05/17 1725: CBC w Diff NO MAN DIFF REQ, RBC 5.46 H, MCV 67.8 L, MCH 20.8 L, MCHC 30.7 L, RDW 17.6 H, MPV 9.4, Gran % 83.0 H, Lymphocytes % 9.1 L, Monocytes % 7.0, Eosinophils % 0.7, Basophils % 0.2, Absolute Granulocytes 10.4 H, Absolute Lymphocytes 1.1 L, Absolute Monocytes 0.9 H, Absolute Eosinophils 0.1, Absolute Basophils 0 08/05/17 1712: Ur Random Creatinine Cancelled, Ur Random Sodium Cancelled, Ur Random Potassium Cancelled, Fraction Sodium Excret Cancelled Assessment/Plan Assessment: Ms Kaur is a 62 year old lady with past medical history of diabetes, hypertension, depression and peripharel vascular disease who was brought into the ED with complaining that she was not feeling well. Creatinine was elevated likely due to prerenal azotemia She will benefit from mild fluid hydration and will monitor her creatinine in the morning. Leukocytosis is likely reactive as she has been unable to offer any complaints, We will however make sure her UA and reflex urinary culture did not suggest an underlying infection. #CHERYL #History of Diabetes #Leukocytosis #Urinary incontinence. #Recent Gastroenteritis Continue General medicine. Cardiology consultation Echocardiogram to be repeated, (last EF 03/24 42%) Fingersticks 3 times a day at bedtime begin coverage with NovoLog sliding scale. We' will also begin Levemir 40 units twice a day. If sugars remain uncontrolled will may consider endocrinology consultation. Bladder Scan every 8 hours to ensure PVR do not exceed 250 mL. If patient continues to remain incontinent may consider urology consultation in a.m. for urodynamic studies. Renal Ultra sound to rule out hydronephrosis. Urine Culture Urine Lytes May continue home medication. PT consultation in a.m. Repeat CBC and BEP in AM DVT PPX: Lovenox Diet: Consistent Carbohydrate II Patient is a full code Problem List: 1. CHERYL (acute kidney injury) 2. Bilateral edema of lower extremity Pain Ratin Pain Location: No Pain Pain Goal: Remain pain free Pain Plan: Tylenol PRN Tomorrow's Labs & Rationales: BEP: Monitor CR CBC: Monitor White count [place] Henry MD 08/06/17 0807: Attending MD Review Statement Attending Statement Attending MD Statement: examined this patient, discuss w/resident/PA/REAL TIME ANALYST, reviewed EMR data (avail), discussed with nursing, reviewed images Attending Assessment/Plan: 62-year-old female past medical history of diabetes, hypertension, nuclear stress test in March showing an EF of about 39-42% so chronic systolic heart failure. She made an ED visit on August 01 she was noted to have an elevated BNP, a CT scan of her abdomen was done then with oral and IV contrast which was nonrevealing and she was discharged on 40 mg of Lasix. She comes in now with evidence of dehydration and CHERYL. She was in an unkempt state with urine all over and feces all over the home. Right now we are treating her for the dehydration, she was hydrated in the ER and we have the Lasix and lisinopril on hold. She is diabetic and is scheduled to take to Trajenta, insulin and metformin at home. We have her on the Levemir and insulin sliding scale. She has a white count of 12,000 with a left shift, chest x-ray is negative and she hasn't given a urine sample yet. She is adamantly refusing straight cath for this urine sample so will need to follow on that closely. We need to follow her BUN and creatinine closely and likely restart her Kt and her diuretics slowly as tolerated. PT eval, collateral info about home situation and follow-up. Will also need to have a formal cardiology consult to clarify all of her medications.
[2017-08-06 06:17] VITALS: BP 152/90
[2017-08-06 09:09] LABS: ABSOLUTE BASOPHIL COUNT 0 /CUMM (0.0-0.2); ABSOLUTE EOSINOPHIL COUNT 0.2 /CUMM (0.0-0.7); ABSOLUTE GRANULOCYTE CT 7.7 /CUMM (1.4-6.5); ABSOLUTE LYMPH COUNT 1.3 /CUMM (1.2-3.4); ABSOLUTE MONOCYTE COUNT 0.8 /CUMM (0.10-0.60); BASOPHIL % 0.4 % (0.0-2.0); EOSINOPHIL % 1.9 % (0-5); GRANULOCYTE % 77.2 % (42.2-75.2); HEMATOCRIT 34.1 % (37-47); MEAN CORPUSCULAR HGB 21.1 PG (27.0-31.0); MEAN CORPUSCULAR VOLUME 68.2 FL (81.0-99.0); MEAN PLATELET VOLUME 9.7 FL (7.4-10.4); PLATELET COUNT 204 /CUMM (130-400); RBC DISTRIBUTION WIDTH 17.4 % (11.5-14.5)
[2017-08-06] MEDS ORDERED: METOPROLOL SUCC25 M1 PO (09:33)
--- NOTE | 2017-08-06 11:41 | ULTRASOUND REPORT ---
EXAMINATION: US TRIPLEX OF LOWER EXTREMITIES, BILATERAL CLINICAL INFORMATION: Bilateral lower extremity swelling. COMPARISON: None TECHNIQUE: Color-flow triplex imaging with spectral analysis and compression Doppler were performed on the lower extremities. FINDINGS: Respiratory variation, normal compression and augmented flow are noted throughout the lower extremities. The visualized common femoral vein, superficial femoral vein, profunda femoral vein, popliteal vein and midcalf peroneal and posterior tibial venous segments show no evidence of deep venous thrombosis. There is a 2.7 x 0.7 x 1.3 cm small fluid collection identified medial to the right popliteal fossa, consistent with a small popliteal fossa, Lorenzo's cyst. IMPRESSION: No evidence of deep venous thrombosis involving the bilateral lower extremities. Small right-sided Lorenzo's cyst.
--- NOTE | 2017-08-06 13:36 | Cons- Cardiology ---
General Information and HPI Consulting Request Date of Consult: 08/06/17 Requested By: Yaz Riley MD History of Present Illness: 62 year patient, with history of CAD, peripheral vascular disease, diabetes mellitus with secondary neuropathy, admitted for malaise and lethargy. Patient had recently been seen in the ED on 08/01 for symptoms of abdominal pain/nausea/ vomiting diarrhea, and was discharged home with usual instruction for conservative management. She was brought back via EMS on 08/05, because her found her very lethargic, confused with psychomotor slowness. She had been degrading since discharge from ED, and was not hydrating or eating adequately. She has had episodes of urinary incontinence which is unusual for her. EMS also reported very bad sanitary conditions in the dwelling. still complaining of nausea in the ED, confused, without focal neurological deficit. CT scan of the brain did not reveal any mass/ischemia/hydrocephaly. labs showed increased BNP 1050. Patient is known for moderately reduce EF from ischemic cardiomyopathy, followed by dr Joel, who did a SPECT scan in 2017, which did not reveal any new ischemia/necrosis. Patient's compliance to medication has been questioned in EMR... 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 She denies chest pains, denies shortness of breath, denies orthopnea, does have some dizziness and lightheadedness without syncope. Allergies/Medications Allergies: Coded Allergies: NO KNOWN ALLERGIES (07/17/10) Home Med List: Aspirin (Children's Aspirin) 81 MG TAB.CHEW 1 TAB PO DAILY HEART HEALTH ( Reported) Fluoxetine HCl 40 MG CAPSULE 2 CAP PO DAILY MENTAL HEALTH (Reported) Furosemide (Lasix) 20 MG TABLET 2 TAB PO DAILY CHF Insulin Glargine,Hum.rec.anlog (Lantus Solostar) (Unknown Strength) INSULN.PEN 80 UNITS SC QPM DM (Reported) Linagliptin (Tradjenta) 5 MG TABLET 1 TAB PO DAILY DM (Reported) Lisinopril 40 MG TABLET 1 TAB PO DAILY HEART (Reported) Metformin HCl (Metformin HCl ER) 500 MG TAB.ER.24 2 TAB PO DAILY DIABETES ( Reported) Metoprolol Succinate 25 MG TAB 1 TAB PO DAILY heart health (Reported) Ondansetron (Zofran Odt) 4 MG TAB.RAPDIS 1 TAB SL TID PRN nausea Ondansetron (Zofran Odt) 4 MG TAB.RAPDIS 1 TAB SL TID PRN nausea Pregabalin (Lyrica) 150 MG CAPSULE 1 CAP PO BID PAIN (Reported) Current Medications: Current Medications Sig/Pawel Start time Last Medication Dose Route Stop Time Status Admin Enoxaparin Sodium 40 MG DAILY 08/05 2215 AC 08/06 SC 0757 Fluoxetine HCl 80 MG DAILY 08/06 09 AC 08/06 PO 0755 Insulin Aspart 0 TIDAC 08/06 0800 AC 08/06 SC 1212 Insulin Aspart 0 AT BEDTIME 08/05 2100 AC SC Insulin Detemir 40 UNITS BID 08/05 2100 AC 08/06 SC 0758 Metoprolol Succinate 25 MG DAILY 08/06 0933 AC 08/06 PO 1035 Pregabalin 150 MG BID 08/05 2100 AC 08/06 PO 0756 Sodium Chloride 1,000 ML Q10H 08/05 2000 DC IV 08/06 0559 Sodium Chloride 1,000 ML BOLUS ONE 08/05 1715 DC 08/05 IV 08/05 1814 1729 Review of Systems Review of Systems Constitutional: Reports: malaise, weakness. Denies: chills, diaphoresis, fever. EENTM: Reports: no symptoms. Cardiovascular: Denies: see HPI. Respiratory: Denies: cough, hemoptysis, orthopnea, short of breath, sputum production, stridor, wheezing. GI: Reports: abdominal pain, diarrhea, nausea, vomiting. Musculoskeletal: Reports: back pain. Denies: neck pain. Neurological/Psychological: Reports: confusion, weakness. Denies: headache, pre-existing deficit, tremors. Past History Travel History Traveled to [place] past 21 day No Medical History Blood Transfusion Hx: No Neurological: DIABETIC NEUROPATHY EENT: diabetic retinopathy Cardiovascular: hypertension Respiratory: NONE Gastrointestinal: NONE Hepatic: NONE Renal: CYSTS Musculoskeletal: chronic back pain Psychiatric: NONE Endocrine: diabetes Blood Disorders: anemia Cancer(s): ovarian cancer EMISSIONS REPAIR TECHNICIAN/Reproductive: NONE Surgical History Surgical History: non-contributory, knee replacement, Cervical Spine Repain Meniscus tear Psychosocial History Where Do You Live? Home Who Do You Live With? spouse Services at Home: None Primary Language: Djib[place] Smoking Status: Former Smoker ETOH Use: denies use Illicit Drug Use: denies illicit drug use Functional Ability ADLs Independent: dressing, eating, toileting, bathing. Ambulation: independent IADLs Independent: shopping, housework, finances, food prep, telephone, transportation , medication admin. Employment History Employment: Retired Exam & Diagnostic Data Vital Signs and I&O Vital Signs Date Time Temp Pulse Resp B/P B/P Pulse O2 O2 Flow FiO2 Mean Ox Delivery Rate 08/06 1035 78 130/60 08/06 0617 98.7 81 18 152/90 92 Room Air 08/05 2123 98.5 86 18 160/90 92 08/05 1936 98.2 86 20 171/62 95 Room Air 08/05 1823 98.6 87 20 155/80 96 Room Air 08/05 1706 98.0 86 20 164/76 96 Room Air Intake & Output 08/06 1600 08/06 0800 08/06 0000 08/05 1600 08/05 0800 08/05 0000 Intake Total 200 1200 Output Total Balance 200 1200 Intake, IV 1000 Intake, Oral 200 200 Number 0 Bowel Movements Patient 280 lb Weight Weight Reported by Patient Measurement Method Physical Exam: General Appearance sleepy, arousable, Cooperative Neck Supple, no JVD Cardiovascular Regular Rate, Normal S1, Normal S2, no murmur appreciated Lungs Clear to Auscultation, Normal Air Movement Abdomen Normal Bowel Sounds, Soft, No Tenderness Neurological: Normal Speech, no motor deficit, no gross sensory deficit Extremities Normal Pulses, No Tenderness/Swelling, good capillary refill Labs/Nick Results: Laboratory Tests 08/06 08/05 0642 1753 Chemistry Sodium (137 - 145 mmol/L) 142 140 Potassium (3.5 - 5.1 mmol/L) 4.0 4.3 Chloride (98 - 107 mmol/L) 102 101 Carbon Dioxide (22 - 30 mmol/L) 31 H 29 Anion Gap (5 - 16) 10 10 BUN (7 - 17 mg/dL) 26 H 31 H Creatinine (0.5 - 1.0 mg/dL) 1.0 1.2 H Estimated GFR (>60 ml/min) 56 L 46 L BUN/Creatinine Ratio (7 - 25 %) 26.0 H 25.8 H Glucose (65 - 99 mg/dL) 238 H Calcium (8.4 - 10.2 mg/dL) 8.7 Magnesium (1.6 - 2.3 mg/dL) 1.7 Total Bilirubin (0.2 - 1.3 mg/dL) 1.2 AST (14 - 36 U/L) 35 ALT (9 - 52 U/L) 49 Alkaline Phosphatase (<127 U/L) 73 Bih-X-Zevigeoiwxg Pept (<125 pg/mL) 1050 H Total Protein (6.3 - 8.2 g/dL) 6.9 Albumin (3.5 - 5.0 g/dL) 3.4 L Globulin (1.9 - 4.2 gm/dL) 3.5 Albumin/Globulin Ratio (1.1 - 2.2 %) 1.0 L Hematology CBC w Diff NO MAN DIFF REQ WBC (4.8 - 10.8 /CUMM) 10.0 RBC (4.20 - 5.40 /CUMM) 5.00 Hgb (12.0 - 16.0 G/DL) 10.6 L Hct (37 - 47 %) 34.1 L MCV (81.0 - 99.0 FL) 68.2 L MCH (27.0 - 31.0 PG) 21.1 L MCHC (33.0 - 37.0 G/DL) 31.0 L RDW (11.5 - 14.5 %) 17.4 H Plt Count (130 - 400 /CUMM) 204 MPV (7.4 - 10.4 FL) 9.7 Gran % (42.2 - 75.2 %) 77.2 H Lymphocytes % (20.5 - 51.1 %) 12.8 L Monocytes % (1.7 - 9.3 %) 7.7 Eosinophils % (0 - 5 %) 1.9 Basophils % (0.0 - 2.0 %) 0.4 Absolute Granulocytes (1.4 - 6.5 /CUMM) 7.7 H Absolute Lymphocytes (1.2 - 3.4 /CUMM) 1.3 Absolute Monocytes (0.10 - 0.60 /CUMM) 0.8 H Absolute Eosinophils (0.0 - 0.7 /CUMM) 0.2 Absolute Basophils (0.0 - 0.2 /CUMM) 0 08/05 08/05 1725 1712 Hematology CBC w Diff NO MAN DIFF REQ WBC (4.8 - 10.8 /CUMM) 12.5 H RBC (4.20 - 5.40 /CUMM) 5.46 H Hgb (12.0 - 16.0 G/DL) 11.4 L Hct (37 - 47 %) 37.0 MCV (81.0 - 99.0 FL) 67.8 L MCH (27.0 - 31.0 PG) 20.8 L MCHC (33.0 - 37.0 G/DL) 30.7 L RDW (11.5 - 14.5 %) 17.6 H Plt Count (130 - 400 /CUMM) 226 MPV (7.4 - 10.4 FL) 9.4 Gran % (42.2 - 75.2 %) 83.0 H Lymphocytes % (20.5 - 51.1 %) 9.1 L Monocytes % (1.7 - 9.3 %) 7.0 Eosinophils % (0 - 5 %) 0.7 Basophils % (0.0 - 2.0 %) 0.2 Absolute Granulocytes (1.4 - 6.5 /CUMM) 10.4 H Absolute Lymphocytes (1.2 - 3.4 /CUMM) 1.1 L Absolute Monocytes (0.10 - 0.60 /CUMM) 0.9 H Absolute Eosinophils (0.0 - 0.7 /CUMM) 0.1 Absolute Basophils (0.0 - 0.2 /CUMM) 0 Urines Ur Random Creatinine Cancelled Ur Random Sodium Cancelled Ur Random Potassium Cancelled Fraction Sodium Excret Cancelled Assessment/Plan Assessment/Plan 62 year old patient with history of CAD with EF around 40% and absence of ischemia on latest SPECT scan in 03/2017, admitted with non specific lethargy, confusion, urinary incontinence. No acute intracebral process has been identified. Patient seems to have suffered from viremia over the past week. The urinary incontinence and confusion are disturbing however, a neuropsychiatric assessment should be pursued ( especially in light of the EMS report of unsanitary living conditions) Although the patient had a cardiac SPECT, i would request an echocardiogram in light of the general malaise more than the BNP which is not unusually elavated in an unstable patient with history of ischemic cardiomyopathy. I would not administer diurectics for the moment. I would do 2 sets of blood cultures. Consult Acknowledgment - Thank you for your consult request.
[2017-08-06 14:24] VITALS: BP 158/78
--- NOTE | 2017-08-06 16:46 | ULTRASOUND REPORT ---
EXAMINATION: US RETROPERITONEAL COMPLETE (RENAL) CLINICAL INFORMATION: CHERYL. COMPARISON: None TECHNIQUE: Real-time imaging of the kidneys and bladder. FINDINGS: RIGHT KIDNEY: 10.6 was 6.1 x 4.9 cm (SAG x AP x TRV). The kidney is normal in size, contour, and echogenicity. Renal cortical thickness is normal. No calculi or focal parenchymal lesions. No hydronephrosis. LEFT KIDNEY: 10.9 x 5.4 x 4.7 cm (SAG x AP x TRV). The kidney is normal in size, contour, and echogenicity. Renal cortical thickness is normal. There is a anechoic cyst in the midpole measuring 2.2 x 2.3 x 2.1 cm.. No hydronephrosis. BLADDER: The bladder is empty. Bilateral ureteral jets are not demonstrated. Prevoid volume is 20 mL. Postvoid volume not available. Due to high fall risk patient is unable to void IMPRESSION: Anechoic cyst midpole left kidney. No echogenic calculi or hydronephrosis seen.
[2017-08-06 21:38] VITALS: BP 165/90
[2017-08-07 06:20] VITALS: BP 152/74
[2017-08-07 07:28] LABS: ABSOLUTE BASOPHIL COUNT 0.1 /CUMM (0.0-0.2); ABSOLUTE EOSINOPHIL COUNT 0.3 /CUMM (0.0-0.7); ABSOLUTE GRANULOCYTE CT 8.5 /CUMM (1.4-6.5); ABSOLUTE LYMPH COUNT 1.6 /CUMM (1.2-3.4); ABSOLUTE MONOCYTE COUNT 0.7 /CUMM (0.10-0.60); BASOPHIL % 0.5 % (0.0-2.0); HEMATOCRIT 35.2 % (37-47); MEAN CORPUSCULAR HGB CONC 30.6 G/DL (33.0-37.0); MEAN CORPUSCULAR VOLUME 68.7 FL (81.0-99.0); MEAN PLATELET VOLUME 9.6 FL (7.4-10.4); PLATELET COUNT 241 /CUMM (130-400); RBC DISTRIBUTION WIDTH 17.1 % (11.5-14.5); RED BLOOD CELL CT 5.12 /CUMM (4.20-5.40); WHITE BLOOD CELL COUNT 11.1 /CUMM (4.8-10.8)
--- NOTE | 2017-08-07 09:16 | PN- Att Addend ---
Attending Addendum Attending Brief Note Patient seen and examined. Discussed with resident and internet marketing intern. Overall patient is looking better today. She is sitting up in a chair. Nursing reported a rash on her buttock and the back of her thighs but I don't see anything right now. She still hasn't given us a urine specimen. A BUN and creatinine have come down to 29 and 1.1. Her white count remains elevated at 11,000 and I would reinforce the need to check a UA. Her pressures also harboring on the high side at 150/ 70. She is a 62-year-old female with underlying diabetes, coronary artery disease diabetic neuropathy and peripheral vascular disease. She came in with what appeared to be dehydration with eileen and diuretic on board. Appreciate cardiology consult and check an echo because of the elevated BNP BNP and the questionable need for daily diuretic. At this point given that the BUN and creatinine is coming back to normal, pressure is high and she is diabetic I think we should restart the EILEEN inhibitor and we can probably do half of what she takes normally. PT has seen her and is recommending STR so will need to work on that.
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
[2017-08-07 14:00] VITALS: BP 132/80
--- NOTE | 2017-08-07 14:24 | ECHOCARDIOGRAM REPORT ---
FAM SANCHEZ Age: 62 : 1955 Gender: F Exam Date: 08/06/2017 11:09 Exam Location: [place] Ht (in): 65 Wt (lb): 280 BSA: 2.49 BP: 152 / 90 Ordering Physician: Mallorie Horvath MD Referring Physician: Mallorie Horvath MD Technologist: Haley Alvarenga [facility] Room Number: 224-02 Indications: Rhythm: Sinus Technical Quality: fair FINDINGS Left Ventricle Normal left ventricular size, wall thickness and systolic function with no obvious regional wall motion abnormalities. Abnormal relaxation filling pattern of the left ventricle for age (stage 1 diastolic dysfunction). . The ejection fraction is visually estimated at 55 %. Right Ventricle The right ventricle is normal in size and function. Right Atrium The right atrium is normal in size. Left Atrium The left atrium is mildly dilated. The interatrial septum is intact. Mitral Valve Mild mitral annular calcification. . There is no mitral regurgitation. Aortic Valve Structurally normal aortic valve without significant sclerosis or stenosis. There is no aortic regurgitation. Tricuspid Valve The tricuspid valve is normal in structure and function. There is trace tricuspid regurgitation. Pulmonary artery systolic pressure is normal. Pulmonic Valve Structurally normal pulmonic valve. There is trace pulmonic regurgitation. Pericardium Normal pericardium without effusion. No pleural effusion. Great Vessels Normal aortic root dimension. The aortic arch and great vessels are well seen and are normal. CONCLUSIONS Normal left ventricular size, wall thickness and systolic function with no obvious regional wall motion abnormalities. Abnormal relaxation filling pattern of the left ventricle for age (stage 1 diastolic dysfunction). The ejection fraction is visually estimated at 55 %. The left atrium is mildly dilated. Mild mitral annular calcification. Structurally normal aortic valve without significant sclerosis or stenosis. There is trace tricuspid regurgitation. Pulmonary artery systolic pressure is normal. There is trace pulmonic regurgitation. Normal pericardium without effusion. Normal aortic root dimension. The aortic arch and great vessels are well seen and are normal. Ceci Fox M.D. (Electronically Signed) Final Date: 07 August 2017 14:23 MEASUREMENTS (Male / Female) Normal Values 2D ECHO LV Diastolic Diameter PLAX 5.0 cm 4.2 - 5.9 / 3.9 - 5.3 cm LV Systolic Diameter PLAX 3.1 cm 2.1 - 4.0 cm LV Fractional Shortening PLAX 38.0 % 25 - 46 % LV Ejection Fraction 2D Teich 67.9 % IVS Diastolic Thickness 1.2 cm LVPW Diastolic Thickness 1.2 cm LV Relative Wall Thickness 0.5 LVOT Diameter 2.0 cm Aortic Root Diameter 2.5 cm LA Systolic Diameter LX 3.5 cm 3.0 - 4.0 / 2.7 - 3.8 cm LA Volume 64.0 cm 18 - 58 / 22 - 52 cm DOPPLER AV Peak Velocity 179.0 cm/s AV Peak Gradient 12.8 mmHg LVOT Peak Velocity 113.0 cm/s LVOT Peak Gradient 5.1 mmHg AV Area Cont Eq pk 2.0 cm Mitral E Point Velocity 86.4 cm/s Mitral A Point Velocity 116.0 cm/s Mitral E to A Ratio 0.7 MV Deceleration Time 218.0 ms LV E' Lateral Velocity 6.8 cm/s Mitral E to LV E' Lateral Ratio 12.7 LV E' Septal Velocity 6.4 cm/s Mitral E to LV E' Septal Ratio 13.4
[2017-08-07 22:25] VITALS: BP 122/72
[2017-08-08 06:48] VITALS: BP 130/76
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
[2017-08-08 08:31] LABS: ABSOLUTE BASOPHIL COUNT 0 /CUMM (0.0-0.2); ABSOLUTE EOSINOPHIL COUNT 0.3 /CUMM (0.0-0.7); ABSOLUTE GRANULOCYTE CT 7.6 /CUMM (1.4-6.5); ABSOLUTE LYMPH COUNT 1.3 /CUMM (1.2-3.4); ABSOLUTE MONOCYTE COUNT 0.8 /CUMM (0.10-0.60); BASOPHIL % 0.4 % (0.0-2.0); EOSINOPHIL % 3.1 % (0-5); GRANULOCYTE % 75.8 % (42.2-75.2); MEAN CORPUSCULAR HGB 21.3 PG (27.0-31.0); MEAN PLATELET VOLUME 9.7 FL (7.4-10.4); PLATELET COUNT 215 /CUMM (130-400); RBC DISTRIBUTION WIDTH 17.3 % (11.5-14.5); RED BLOOD CELL CT 4.81 /CUMM (4.20-5.40); WHITE BLOOD CELL COUNT 10.1 /CUMM (4.8-10.8)
[2017-08-08 09:04] LABS: MEAN CORPUSCULAR VOLUME 68.6 FL (81.0-99.0)
[2017-08-08 14:06] VITALS: BP 120/68
--- NOTE | 2017-08-08 18:30 | PN- Cardiology ---
Subjective Subjective: Feeling better. Abdominal pain has improved. No chest pain. No shortness of breath. No palpitations Objective Vital Signs and I&Os Vital Signs Date Time Temp Pulse Resp B/P B/P Pulse O2 O2 Flow FiO2 Mean Ox Delivery Rate 08/08 1406 98.5 65 20 120/68 92 Room Air 08/08 1251 Room Air 08/08 0927 97 112/68 08/08 0927 97 112/68 08/08 0800 98 Room Air 08/08 0648 97.9 64 16 130/76 96 Room Air 08/07 2225 97.9 67 16 122/72 94 Intake & Output 08/08 1600 08/08 0800 08/08 0000 08/07 1600 08/07 0800 08/07 0000 Intake Total 480 200 300 800 300 300 Output Total 250 180 600 Balance 230 200 120 200 300 300 Intake, Oral 480 200 300 800 300 300 Number 0 Bowel Movements Output, Urine 250 180 600 Patient 272 lb Weight Weight Bed scale Measurement Method Physical Exam: Gen: The patient is in no acute distress HEENT: Normal nose, ears, and oropharynx. Pupils equal bilaterally. Conjunctiva normal. Neck: Supple with no JVD, no masses, and no thyromegaly Lungs: Clear to auscultation with normal respiratory effort Heart: RRR, S1, S2, no murmurs. No peripheral edema, 2+ pulses in the lower extremities bilaterally Abdomen: Soft, nontender, no masses. No hepatomegaly. No splenomegaly Extremities: No clubbing or cyanosis. Normal muscle strength in the upper and lower extremities Skin: Normal skin turgor with no skin ulcers or lesions noted. Current Medications: Current Medications Sig/Pawel Start time Last Medication Dose Route Stop Time Status Admin Enoxaparin Sodium 40 MG DAILY 08/05 2214 AC 08/08 WA 09 Fluoxetine HCl 80 MG DAILY 08/06 899 AC 08/08 PO 0926 Insulin Aspart 0 TIDAC 08/06 08 AC 08/08 SC 1134 Insulin Aspart 0 AT BEDTIME 08/05 2099 AC SC Insulin Detemir 40 UNITS BID 08/05 2099 AC 08/08 SC 09 Lisinopril 20 MG DAILY 08/07 0953 AC 08/08 PO 09 Metoprolol Succinate 25 MG DAILY 08/06 932 AC 08/08 PO 09 Patient Medication 1 ED ONE ONE 08/08 1030 DC 08/08 Teaching ED 08/08 1031 1027 Pregabalin 150 MG BID 08/05 2100 AC 08/08 PO 0927 Results Last 48 Hrs of Labs/Mics: Laboratory Tests 08/08/17 0727: Anion Gap 11, Estimated GFR 50 L, BUN/Creatinine Ratio 27.3 H, CBC w Diff NO MAN DIFF REQ, RBC 4.81, MCV 68.6 L, MCH 21.3 L, MCHC 31.0 L, RDW 17.3 H, MPV 9.7, Gran % 75.8 H, Lymphocytes % 12.5 L, Monocytes % 8.2, Eosinophils % 3.1, Basophils % 0.4, Absolute Granulocytes 7.6 H, Absolute Lymphocytes 1.3, Absolute Monocytes 0.8 H, Absolute Eosinophils 0.3, Absolute Basophils 0 08/07/17 1439: Urinalysis LIGHT H, Urine Color YEL, Urine Clarity HAZY H, Urine pH 6.0, Ur Specific [place] 1.025, Urine Protein TRACE H, Urine Ketones NEG, Urine Nitrite NEG, Urine Bilirubin NEG, Urine Urobilinogen 1.0, Ur Leukocyte Esterase NEG, Ur Microscopic SEDIMENT EXAMINED, Urine RBC 1-3, Urine WBC 1-3 H, Ur Epithelial Cells MOD H, Urine Bacteria MANY H, Urine Hemoglobin TRACE-INTACT, Urine Glucose NEG 08/07/17 0540: Anion Gap 10, Estimated GFR 50 L, BUN/Creatinine Ratio 26.4 H, CBC w Diff NO MAN DIFF REQ, RBC 5.12, MCV 68.7 L, MCH 21.0 L, MCHC 30.6 L, RDW 17.1 H, MPV 9.6, Gran % 76.0 H, Lymphocytes % 14.3 L, Monocytes % 6.2, Eosinophils % 3.0, Basophils % 0.5, Absolute Granulocytes 8.5 H, Absolute Lymphocytes 1.6, Absolute Monocytes 0.7 H, Absolute Eosinophils 0.3, Absolute Basophils 0.1 Assessment/Plan Assessment/Plan Assessment: 1. Acute kidney injury, improved 2. CAD, stable Plan: * Continue current medications. * Cardiac status is stable. * Follow up in the office 1 to 2 weeks after discharge. Continue telemetry? Not applicable
[2017-08-08 22:21] VITALS: BP 116/70
[2017-08-09 05:38] VITALS: BP 128/68
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
--- NOTE | 2017-08-09 11:44 | Patient Discharge Instructions ---
Discharge Instructions General Discharge Information You were seen/treated for: Acute kidney failure, gastroenteritis Watch for these problems: Fever, chest pain, shortness of breath Special Instructions: Please take all medications as directed. Please follow-up with primary care. Diet Continue normal diet: Yes Activity Full Activity/No Limits: Yes Acute Coronary Syndrome Inclusion Criteria At DC or during hospital stay patient has or had the following: ACS DIAGNOSIS No Discharge Core Measures Meds if any: Prescribed or Continued at Discharge Meds if any: NOT Prescribed or Continued at Discharge Congestive Heart Failure Inclusion Criteria At DC or during hospital stay patient has or had the following: CHF DIAGNOSIS No Discharge Core Measures Meds if any: Prescribed or Continued at Discharge Meds if any: NOT Prescribed or Continued at Discharge Cerebrovascular accident Inclusion Criteria At DC or during hospital stay patient has or had the following: CVA/TIA Diagnosis No Discharge Core Measures Meds if any: Prescribed or Continued at Discharge Meds if any: NOT Prescribed or Continued at Discharge Venous thromboembolism Inclusion Criteria VTE Diagnosis No VTE Type NONE VTE Confirmed by (Test) NONE Discharge Core Measures - Per Current guidelines, there needs to be overlap - treatment for the first 5 days of Warfarin therapy. - If discharged on Warfarin prior to 5 days of - overlap therapy, the patient will need to be - assessed for post discharge needs including - *Post discharge parental anticoagulation - *Warfarin and/or parental anticoagulation education - *Follow up date to check INR post discharge At least 5 days overlap therapy as Inpatient No Meds if any: Prescribed or Continued at Discharge Note: Overlap Therapy is Warfarin and Anticoagulant Meds if any: NOT Prescribed or Continued at Discharge
[2017-08-09 12:21] VITALS: BP 110/80
--- NOTE | 2017-08-09 12:44 | PN- Housestaff ---
See Addendum Subjective Follow-up For: CHERYL and dehydration Complaints: no complaints Subjective: Patient states she is feeling hungry and a little shaky this morning. She feels this way when her blood glucose is low. The RN took her BS which was 58. She was given juice and her BS responded. Patient was mentating well throughout this period. Denies fever, chills, n/v/d, chest pain, SOB, abd pain. Review of Systems Constitutional: Reports: see HPI. Objective Last 24 Hrs of Vital Signs/I&O Vital Signs Date Time Temp Pulse Resp B/P B/P Pulse O2 O2 Flow FiO2 Mean Ox Delivery Rate 08/09 1221 97.4 68 20 110/80 07/03 0910 Room Air / 0817 68 110/80 07/ 0816 68 110/80 07/ 0800 95 Room Air / 0538 97.4 64 20 128/68 94 Room Air 08/08 2221 97.8 70 20 116/70 95 07/02 1406 98.5 65 20 120/68 92 Room Air Intake & Output 08/09 1600 07/03 0800 07/03 0000 Intake Total 360 360 Output Total 400 550 Balance -400 -190 360 Intake, Oral 360 360 Number 1 1 Bowel Movements Output, Urine 400 550 Patient 272 lb Weight Physical Exam General Appearance: Alert, Oriented X3, Cooperative, No Acute Distress Skin: No Rashes Skin Temp/Moisture Exam: Warm/Dry HEENT: Atraumatic, PERRLA Neck: Supple Cardiovascular: Regular Rate, Normal S1, Normal S2 Lungs: Clear to Auscultation, Normal Air Movement Abdomen: Normal Bowel Sounds, Soft, No Tenderness (obese) Extremities: No Edema, Normal Pulses Assessment/Plan Assessment: 62 year old female with PMH IDDM, HTN, Depression, PVD admitted for CHERYL likely 2 /2 dehydration with leukocytosis. Patient responded well to IVF and CHERYL resolved. She was evaluated by PT which recommeded STR. Patient will be discharged this afternoon to STR. #CHERYL -resolved; PO intake adequate -VSS -labs have been stable #chronic medical issues -home medications Discharge this afternoon. Problem List: 1. CHERYL (acute kidney injury) Pain Ratin Pain Location: none Pain Goal: Remain pain free Pain Plan: no pain Tomorrow's Labs & Rationales: none
== END 2017-08-09 13:30 | DRG 422 ==
LOC: ERH 17:02 → ERHI 18:54 → 2NA 18:54 → ENRESERV 19:18 → ENTRNSPT 19:55 → EDTRNSPTSTS 20:04 → 2NA 20:05 → CMPTRNSPT 21:01 → 2NA 08-08 07:57 → ENPENDDIS 08-09 11:59 → 2NA 08-09 13:30
PROVIDERS: Internal Medicine; Student in an Organized Health Care Education/Training Program
DX: E86.0 Dehydration (principal); N17.9 Acute kidney failure, unspecified; I11.0 Hypertensive heart disease with heart failure; I50.22 Chronic systolic (congestive) heart failure; E11.40 Type 2 diabetes mellitus with diabetic neuropathy, unspecified; E11.319 Type 2 diabetes mellitus with unspecified diabetic retinopathy without macular edema; Z79.4 Long term (current) use of insulin; Z79.84 Long term (current) use of oral hypoglycemic drugs; Z91.14 Patient's other noncompliance with medication regimen; E66.01 Morbid (severe) obesity due to excess calories; Z68.42 Body mass index [BMI] 45.0-49.9, adult; R26.81 Unsteadiness on feet; R32 Unspecified urinary incontinence; R60.0 Localized edema; I25.5 Ischemic cardiomyopathy; F32.9 Major depressive disorder, single episode, unspecified; E11.51 Type 2 diabetes mellitus with diabetic peripheral angiopathy without gangrene; M54.9 Dorsalgia, unspecified; I25.10 Atherosclerotic heart disease of native coronary artery without angina pectoris
CPT/HCPCS: 2NASP; 84133; 84300; 36415; 36592; 71045; 76775; 81001; 82436; 82570; 87040; 87086; 93005; 93010; 93306; 93970; 96360; 96361; 97116-GO; 97161-GP; 97530-GO; J1650

== ENCOUNTER 2017-09-11 10:16 | Emergency (ER) | payer OTHER ==
[~2017-09-11] VITALS: Ht 165.1 cm; Wt 124.7 kg
[~2017-09-11 10:16] MED LIST changes: +COLACE100 M1 PO; +KEFLEX500 M1 PO; +METOPROLOL SUCC25 M1 PO; +MIRALAX17 G1 PO; +SENNA8.6 M3 PO
[2017-09-11 10:20] VITALS: BP 100/65
--- NOTE | 2017-09-11 11:14 | ED ANIMAL BITE/WOUND CHECK ---
History of Present Illness General Chief Complaint: Suture Removal/Wound Recheck Stated Complaint: WOUND CHECK,BANDAGE CHANGE Source: patient Exam Limitations: no limitations Vital Signs & Intake/Output Vital Signs & Intake/Output Vital Signs Date Time Temp Pulse Resp B/P B/P Pulse O2 O2 Flow FiO2 Mean Ox Delivery Rate 09/11 1020 98.4 65 18 100/65 98 Room Air Allergies Uncoded Allergies: SOME TYPE OF INSULIN (ITCH 08/26/17) Reconcile Medications Aspirin (Children's Aspirin) 81 MG TAB.CHEW 1 TAB PO DAILY HEART HEALTH ( Reported) Cephalexin (Keflex) 500 MG CAPSULE 1 CAP PO TID toe laceration Docusate Sodium (Colace) 100 MG CAPSULE 1 CAP PO BID CONSTIPATION (Reported) Fluoxetine HCl 40 MG CAPSULE 2 CAP PO DAILY MENTAL HEALTH (Reported) Furosemide (Lasix) 20 MG TABLET 2 TAB PO DAILY CHF Insulin Glargine,Hum.rec.anlog (Lantus Solostar) (Unknown Strength) INSULN.PEN 70 UNITS SC QPM DM (Reported) Linagliptin (Tradjenta) 5 MG TABLET 1 TAB PO DAILY DM (Reported) Lisinopril 40 MG TABLET 1 TAB PO DAILY HEART (Reported) Metformin HCl (Metformin HCl ER) 500 MG TAB.ER.24 2 TAB PO DAILY DIABETES ( Reported) Metoprolol Succinate 25 MG TAB 1 TAB PO DAILY heart health (Reported) Polyethylene Glycol 3350 (Miralax) 17 GRAM POWD.PACK 1 PAC PO DAILY CONSTIPATION (Reported) dissolve in water Pregabalin (Lyrica) 150 MG CAPSULE 1 CAP PO BID PAIN (Reported) Sennosides (Senna) 8.6 MG TABLET 2 TAB PO QPM CONSTIPATION (Reported) Triage Note: 62 YO FEMALE TO TRIAGE FOR RE-CHECK OF L PINKY TOE. STATES SHE FRACTURED THE TOE AND HAD A LACERATION, STATES HERE TODAY FOR DRESSING CHANGE AND RE-CECHK. Triage Nurses Notes Reviewed? yes HPI: 62-year-old female with history of diabetes who presents for a wound check today to her left toe. Patient had recently suffered a fall out of bed and laceration to the toe with suture placement. She was here on Tuesday for this injury and was told to recheck today for a wound check. She denies any fevers or chills she denies any increased pain. Past History Travel History Traveled to [place] past 21 day No Medical History Any Pertinent Medical History? see below for history Neurological: DIABETIC NEUROPATHY EENT: diabetic retinopathy Cardiovascular: hypertension, myocardial infarction Respiratory: NONE Gastrointestinal: NONE Hepatic: NONE Renal: CYSTS Musculoskeletal: chronic back pain Psychiatric: NONE Endocrine: diabetes Blood Disorders: anemia Cancer(s): UTERINE RELIEF MATE/Reproductive: NONE History of MRSA: No History of VRE: No History of CDIFF: No Tetanus Vaccine: 09/09/17 Surgical History Surgical History: non-contributory, knee replacement, Cervical Spine Repain Meniscus tear Psychosocial History Who do you live with Spouse Services at Home None What is your primary language Chadian Tobacco Use: Never used Family History Hx Contributory? Yes Review of Systems Review of Systems Constitutional: Denies: no symptoms, see HPI. EENTM: Denies: no symptoms. Respiratory: Denies: no symptoms. Cardiovascular: Denies: no symptoms. GI: Denies: no symptoms. Genitourinary: Denies: no symptoms. Musculoskeletal: Denies: joint pain, joint swelling, muscle pain, muscle stiffness, neck pain. Skin: Denies: change in skin color, change in hair/nails. Neurological/Psychological: Denies: no symptoms, other (diabetic neuropathy). Hematologic/Endocrine: Denies: no symptoms. Immunologic/Allergic: Denies: no symptoms. All Other Systems: Reviewed and Negative Physical Exam Physical Exam General Appearance: well developed/nourished, no apparent distress, alert, awake Head: atraumatic, normal appearance Eyes: Bilateral: normal appearance. Neck: normal inspection, supple Respiratory: normal breath sounds Cardiovascular: regular rate/rhythm Peripheral Pulses: 2+ carotid (R), 2+ tibialis posterior (L), 2+ dorsalis pedis (L) Extremities: evidence of injury, injury present Neurologic/Psych: awake, alert, oriented x 3 Skin: slight erythema to the left pinky toe and fourth toe. Sutures in place. No drainage. Slight serosanguineous drainage to the ( previous dressing.) Progress Differential Diagnosis: trauma to left toe status post sutures. Plan of Care: Patient here for recheck of her wound and redressing of her wound. She will need to return in approximately 7 days for suture removal. She did already receive a tetanus shot. Dressing has been replaced today with additional boot over top. She has a follow-up appointment with her roadway engineer next week as well. Further intervention required at this time. Departure Departure Disposition: HOME OR SELF CARE Condition: Stable Clinical Impression Primary Impression: Toe fracture, left Secondary Impressions: Toe injury, Toe laceration Referrals: Aminata GONSALEZ,Fabienne Sullivan (PCP/Family) Additional Instructions: Patient to return to the ER for suture removal as previously directed the next few days. Follow-up with her roadway engineer as well as planned for next week. Continue dressing changes if wound becomes soiled. Return to the emergency department if patient has worsening symptoms of pain and fever or if toe discoloration becomes dark or erythematous and spreading. Patient received tetanus shot on her last visit. Departure Forms: Customer Survey General Discharge Information ED Attending Observation Initial Observation Note: I have seen and personally examined FAM SANCHEZ on 09/11/17 at 1112. I agree with the current emergency department documentation. The disposition (admission or discharge) is uncertain at this time, she needs a period of observation for the following reason(s): The ED Nurse caring for this patient has been personally informed as to what the patient is being observed for.
== END 2017-09-11 11:18 ==
LOC: ERH 10:16
DX: Z48.00 Encounter for change or removal of nonsurgical wound dressing (principal)

== ENCOUNTER 2017-10-12 12:52 | Emergency (ER) | payer OTHER ==
[~2017-10-12] VITALS: Ht 165.1 cm; Wt 124.7 kg
[~2017-10-12 12:52] MED LIST changes: -LYRICA150 M1 PO; +LYRICA300 M1 PO
[2017-10-12 12:57] VITALS: BP 108/71
[2017-10-12 14:45] LABS: ABSOLUTE BASOPHIL COUNT 0 /CUMM (0.0-0.2); ABSOLUTE EOSINOPHIL COUNT 0.2 /CUMM (0.0-0.7); ABSOLUTE GRANULOCYTE CT 7.1 /CUMM (1.4-6.5); ABSOLUTE LYMPH COUNT 1.3 /CUMM (1.2-3.4); ABSOLUTE MONOCYTE COUNT 0.6 /CUMM (0.10-0.60); BASOPHIL % 0.3 % (0.0-2.0); EOSINOPHIL % 2.2 % (0-5); GRANULOCYTE % 76.8 % (42.2-75.2); HEMATOCRIT 35.9 % (37-47); MEAN CORPUSCULAR HGB 21.7 PG (27.0-31.0); MEAN CORPUSCULAR HGB CONC 31.3 G/DL (33.0-37.0); MEAN CORPUSCULAR VOLUME 69.2 FL (81.0-99.0); MEAN PLATELET VOLUME 12.7 FL (7.4-10.4); PLATELET COUNT 223 /CUMM (130-400); RED BLOOD CELL CT 5.19 /CUMM (4.20-5.40); WHITE BLOOD CELL COUNT 9.3 /CUMM (4.8-10.8)
[2017-10-12] MEDS ORDERED: FUROSEMIDE20 M1 PO (14:57)
--- NOTE | 2017-10-12 15:18 | ED GENERAL ADULT ---
History of Present Illness General Chief Complaint: General Adult Stated Complaint: BIBA FOR WEAKNESS Source: patient, family Exam Limitations: no limitations Vital Signs & Intake/Output Vital Signs & Intake/Output Vital Signs Date Time Temp Pulse Resp B/P B/P Pulse O2 O2 Flow FiO2 Mean Ox Delivery Rate 10/12 1257 97.8 56 20 108/71 96 Room Air Allergies Uncoded Allergies: SOME TYPE OF INSULIN (ITCH 08/26/17) Reconcile Medications Aspirin (Children's Aspirin) 81 MG TAB.CHEW 1 TAB PO DAILY HEART HEALTH ( Reported) Fluoxetine HCl 40 MG CAPSULE 2 CAP PO DAILY MENTAL HEALTH (Reported) Furosemide 20 MG TABLET 1 TAB PO BID WATER RETENTION (Reported) Insulin Glargine,Hum.rec.anlog (Lantus Solostar) (Unknown Strength) INSULN.PEN 60 UNITS SC QPM DM (Reported) Linagliptin (Tradjenta) 5 MG TABLET 1 TAB PO DAILY DM (Reported) Lisinopril 40 MG TABLET 1 TAB PO DAILY HEART (Reported) Metoprolol Succinate 25 MG TAB 1 TAB PO DAILY heart health (Reported) Pregabalin (Lyrica) 300 MG CAPSULE 1 CAP PO BID NEUROPATHY (Reported) Triage Note: PT BIBA TO ED FOR GENERALIZED WEAKNESS. PT HAD VISITING NURSE COME TO THE HOUSE TODAY AND THOUGHT PT'S HOUSE WAS UNLIVEABLE. PT HAS NO COMPLAINTS BUT STATES "THEY DON'T THINK I SHOULD LIVE THERE". PT WITH RECENT KIDNEY FAILURE. Triage Nurses Notes Reviewed? yes HPI: 62-year-old female comes in by EMS. She denies any complaints. She reports that she was recently diagnosed with kidney failure. This was within the last 2 or 3 days. She has a visiting nurse who found the condition of her home unlivable so she was sent in. The patient is on Lasix for congestive heart failure. She denies any excessive leg swelling, shortness of breath. Past History Travel History Traveled to [place] past 21 day No Medical History Any Pertinent Medical History? see below for history Neurological: DIABETIC NEUROPATHY EENT: diabetic retinopathy Cardiovascular: hypertension, myocardial infarction Respiratory: NONE Gastrointestinal: NONE Hepatic: NONE Renal: CYSTS Musculoskeletal: chronic back pain Psychiatric: NONE Endocrine: diabetes Blood Disorders: anemia Cancer(s): UTERINE DIETITIAN THERAPEUTIC/Reproductive: NONE History of MRSA: No History of VRE: No History of CDIFF: No Tetanus Vaccine: 09/09/17 Surgical History Surgical History: non-contributory, knee replacement, Cervical Spine Repain Meniscus tear Psychosocial History Who do you live with Spouse Services at Home None What is your primary language Malawian Tobacco Use: Quit >30 days ago ETOH Use: denies use Illicit Drug Use: denies illicit drug use Family History Hx Contributory? No Review of Systems Review of Systems Constitutional: Denies: chills, diaphoresis, fever. EENTM: Denies: blurred vision, double vision, visual changes. Respiratory: Denies: cough, hemoptysis, orthopnea, short of breath. Cardiovascular: Reports: edema (chronic and unchanged). Denies: chest pain. GI: Denies: abdominal pain, bloating, constipation. Genitourinary: Denies: discharge, dysuria, frequency. Musculoskeletal: Denies: back pain, gout, joint pain. Skin: Denies: cysts, change in skin color, change in hair/nails. Neurological/Psychological: Denies: anxiety, ataxia, cognitive dysfunction. Physical Exam Physical Exam General Appearance: well developed/nourished, no apparent distress, alert, awake Head: atraumatic, normal appearance Eyes: Bilateral: PERRL, EOMI. Ears, Nose, Throat: normal pharynx, normal ENT inspection Neck: normal inspection Respiratory: normal breath sounds, chest non-tender, no respiratory distress Cardiovascular: regular rate/rhythm, edema (2+ b/l) Peripheral Pulses: 4+ radial (R), 4+ radial (L), 4+ dorsalis pedis (R), 4+ dorsalis pedis (L) Gastrointestinal: normal bowel sounds, soft, non-tender, no organomegaly Back: normal inspection, normal range of motion Neurologic/Psych: no motor/sensory deficits, awake, alert, oriented x 3, normal gait Skin: intact Core Measures ACS in differential dx? No CVA/TIA Diagnosis: No Sepsis Present: No Sepsis Focused Exam Completed? No Progress Differential Diagnoses . Plan of Care: Orders Procedure Date/time Status Add-on Test (ER Only) 10/12 1523 Active TROPONIN LEVEL 10/12 1429 Complete B-TYPE NATRIURETIC PEP (BNP) 10/12 1429 Complete URINALYSIS 10/12 1303 Active COMPREHENSIVE METABOLIC PANEL 10/12 1303 Complete CBC WITHOUT DIFFERENTIAL 10/12 1303 Complete EKG 10/12 1303 Active Laboratory Tests 10/12/17 1429: Anion Gap 6, Estimated GFR 33 L, BUN/Creatinine Ratio 32.5 H, Glucose 75, Calcium 8.9, Total Bilirubin 0.7, AST 31, ALT 34, Alkaline Phosphatase 70, Troponin I < 0.01, Qye-G-Mvgamoisjeb Pept 558 H, Total Protein 7.2, Albumin 3.6 , Globulin 3.6, Albumin/Globulin Ratio 1.0 L, CBC w Diff MAN DIFF ORDERED, RBC 5.19, MCV 69.2 L, MCH 21.7 L, MCHC 31.3 L, RDW 18.0 H, MPV 12.7 H, Gran % 76.8 H, Lymphocytes % 14.4 L, Monocytes % 6.3, Eosinophils % 2.2, Basophils % 0.3, Absolute Granulocytes 7.1 H, Absolute Lymphocytes 1.3, Absolute Monocytes 0.6, Absolute Eosinophils 0.2, Absolute Basophils 0, Platelet Estimate ADEQUATE, Anisocytosis 1+, Microcytic Cells 1+ Initial ED EKG: see below Comments: EKG: Sinus, rate of 56. Normal axis. Intervals show IL interval 204. Rest of the intervals are normal. No acute ST-T changes. Compared to the EKG from September 03, 2017: No significant change. The patient appears without any discomfort. My concern is renal failure in the setting of Lasix and congestive heart failure. Plan will be that we will stop the patient's Lasix. Her primary doctor is aware of her renal issues. And follow-up within 2 days to assess the kidney function again and then restart Lasix if indicated. In the meantime patient was given warnings. Still pending urinalysis. 2100 patient urinated and missed collection hat. She is not able to give us another specimen. The patient has walker at home, with the walker, she walked to the end of the doors without any help and walked back to her chair and sat down. No discomfort. The patient is safe to discharge home. Her will make sure that the house has been clean. He already called one set of camera engineer to help clean up the house somewhat. He is here to picker and sorter load and unload the patient. The patient has no chest pain or shortness of breath any signs of CHF. At this time given her kidney functions we will stop her Lasix and she will have to see her primary doctor within 48 hours to reassess her kidney function. In the meantime the patient is examined emergency room return warnings. The patient is comfortable and verbalizes understanding. Departure Departure Time of Disposition: 2101 Disposition: STILL A PATIENT Condition: Stable Clinical Impression Primary Impression: Acute renal failure (ARF) Referrals: Aminata GONSALEZ,Fabienne Sullivan (PCP/Family) Additional Instructions: Stop her Lasix (fluid pill). Keep your appointment with a doctor in the morning to have your kidney function checked again. You might need to see your doctor over the next couple of days while they decide if you need to be on Lasix If you have any concerns or questions please return to the emergency room. If you have shortness of breath or leg swelling increases, return to the emergency room. Departure Forms: Customer Survey General Discharge Information Critical Care Note Critical Care Note Critical Care Time: non-applicable
== END 2017-10-12 21:16 ==
LOC: ERH 12:52
PROVIDERS: Physician Assistant Medical
DX: N17.9 Acute kidney failure, unspecified (principal); I50.9 Heart failure, unspecified; I10 Essential (primary) hypertension; E11.9 Type 2 diabetes mellitus without complications; D64.9 Anemia, unspecified; Z87.891 Personal history of nicotine dependence; Z79.82 Long term (current) use of aspirin
CPT/HCPCS: 93005; 93010

== ENCOUNTER 2017-10-28 12:36 | Emergency (ER) | payer OTHER ==
[~2017-10-28] VITALS: Ht 165.1 cm; Wt 127.0 kg
[~2017-10-28 12:36] MED LIST changes: +FUROSEMIDE20 M1 PO; +LYRICA150 M1 PO; -LYRICA300 M1 PO
[2017-10-28 13:40] LABS: ABSOLUTE BASOPHIL COUNT 0 /CUMM (0.0-0.2); ABSOLUTE EOSINOPHIL COUNT 0.1 /CUMM (0.0-0.7); ABSOLUTE GRANULOCYTE CT 7.4 /CUMM (1.4-6.5); ABSOLUTE LYMPH COUNT 0.9 /CUMM (1.2-3.4); ABSOLUTE MONOCYTE COUNT 0.5 /CUMM (0.10-0.60); BASOPHIL % 0.4 % (0.0-2.0); EOSINOPHIL % 1.2 % (0-5); GRANULOCYTE % 81.8 % (42.2-75.2); HEMATOCRIT 35.4 % (37-47); MEAN CORPUSCULAR HGB 21.4 PG (27.0-31.0); MEAN CORPUSCULAR HGB CONC 30.8 G/DL (33.0-37.0); MEAN PLATELET VOLUME 9.6 FL (7.4-10.4); PLATELET COUNT 193 /CUMM (130-400); RBC DISTRIBUTION WIDTH 17.7 % (11.5-14.5)
[2017-10-28 13:41] LABS: MEAN CORPUSCULAR VOLUME 69.4 FL (81.0-99.0)
--- NOTE | 2017-10-28 14:02 | ED GENERAL ADULT ---
History of Present Illness General Chief Complaint: General Adult Stated Complaint: VALENTÍN "NOT SAFE AT HOME" Source: patient, family Exam Limitations: no limitations Vital Signs & Intake/Output Vital Signs & Intake/Output Vital Signs Date Time Temp Pulse Resp B/P B/P Pulse O2 O2 Flow FiO2 Mean Ox Delivery Rate 10/28 1710 98.0 66 18 151/91 98 Room Air 10/28 1421 98.2 63 16 146/92 98 Room Air 10/28 1242 98.4 66 18 136/66 98 Room Air Allergies Uncoded Allergies: SOME TYPE OF INSULIN (ITCH 08/26/17) Reconcile Medications Aspirin (Children's Aspirin) 81 MG TAB.CHEW 1 TAB PO DAILY HEART HEALTH ( Reported) Fluoxetine HCl 40 MG CAPSULE 2 CAP PO DAILY MENTAL HEALTH (Reported) Furosemide 20 MG TABLET 1 TAB PO BID WATER RETENTION (Reported) Insulin Glargine,Hum.rec.anlog (Lantus Solostar) (Unknown Strength) INSULN.PEN 50 UNITS SC QPM DM (Reported) Linagliptin (Tradjenta) 5 MG TABLET 1 TAB PO DAILY DM (Reported) Lisinopril 40 MG TABLET 1 TAB PO DAILY HEART (Reported) Metoprolol Succinate 25 MG TAB 1 TAB PO DAILY heart health (Reported) Pregabalin (Lyrica) 150 MG CAPSULE 1 CAP PO DAILY NEUROPATHY (Reported) Triage Note: 62 Y/O FEMALE BIBA FROM HOME FOR EVAL OF "NOT SAFE AT HOME". PER EMS, VISITING NURSE CALLED 911 DUE TO NOT FEELING THEY COULD LEAVE PT IN THE HOME. PT ARRIVES A/0 X 4, SPEAKING CLEARLY WITH NO DISTRESS. PT DENIES ANY COMPLAINTS STATING "I FEEL FINE BUT I HAVE BEEN FALLING A LOT". DENIES INJURIES AT THIS TIME AWAITING EVAL Triage Nurses Notes Reviewed? yes HPI: 62-year-old female presents from home via EMS stating that she does not feel safe at home, falls, is not being fed. Visiting nurse called 911 feeling that she was not able to leave the patient in a house due to her own safety. Denies chest pain, shortness of breath, abdominal pain, slurred speech, headache, change in bowel or bladder. She does state that sometimes she has difficulty finding the correct words and feels pressured to do so. Patient states that she has felt more weak recently and falls out of bed (as I walked into the room she was being coached over the phone on speaker phone by her as to what to say). Past History Travel History Traveled to [place] past 21 day No Medical History Any Pertinent Medical History? see below for history Neurological: DIABETIC NEUROPATHY EENT: diabetic retinopathy Cardiovascular: hypertension, myocardial infarction Respiratory: NONE Gastrointestinal: NONE Hepatic: NONE Renal: CYSTS Musculoskeletal: chronic back pain Psychiatric: NONE Endocrine: diabetes, 3 Blood Disorders: anemia Cancer(s): UTERINE RN BSN/Reproductive: NONE History of MRSA: No History of VRE: No History of CDIFF: No Tetanus Vaccine: 09/09/17 Surgical History Surgical History: non-contributory, knee replacement, Cervical Spine Repain Meniscus tear Psychosocial History Who do you live with Spouse Services at Home None What is your primary language Tuvaluan Tobacco Use: Quit >30 days ago Family History Hx Contributory? No Review of Systems Review of Systems Constitutional: Reports: no symptoms, see HPI. EENTM: Reports: no symptoms. Respiratory: Reports: no symptoms. Cardiovascular: Reports: no symptoms. GI: Reports: no symptoms. Genitourinary: Reports: no symptoms. Musculoskeletal: Reports: no symptoms. Skin: Reports: no symptoms. Neurological/Psychological: Reports: no symptoms. Hematologic/Endocrine: Reports: no symptoms. Immunologic/Allergic: Reports: no symptoms. All Other Systems: Reviewed and Negative Physical Exam Physical Exam General Appearance: well developed/nourished, no apparent distress Comments: Gen.: Well-nourished, well-developed, no acute respiratory distress. Head: Normocephalic, atraumatic. Eyes: Normal inspection bilaterally Ears: Normal inspection bilaterally Nose: Normal inspection Throat/mouth : Moist mucosa Neck: Supple, full range of motion, no goiter Heart: Regular rate and rhythm, no murmurs rubs or gallops Lungs: Clear to auscultation bilaterally with normal air entry Chest: Nontender Back: Normal range of motion Abdomen: Soft, nontender, nondistended, normal bowel sounds Extremities: Normal range of motion grossly, equal radial pulses, no cyanosis clubbing or edema Neurologic: Cranial nerves grossly intact, speech is clear, deep tendon reflexes intact. Skin: warm and dry Psychiatric: Calm, cooperative, no apparent delusions or hallucinations Core Measures ACS in differential dx? No CVA/TIA Diagnosis: No Sepsis Present: No Sepsis Focused Exam Completed? No Progress Differential Diagnoses I considered the following diagnoses in my evaluation of the patient: Weakness, not meeting ADLs, unsafe living environment. Plan of Care: Orders Procedure Date/time Status URINALYSIS 10/28 1307 Complete PHOSPHORUS 10/28 130 Complete MAGNESIUM 10/28 130 Complete COMPREHENSIVE METABOLIC PANEL 10/28 130 Complete CBC WITHOUT DIFFERENTIAL 10/28 130 Complete EKG 10/28 1306 Active Laboratory Tests 10/28/17 1655: Urinalysis LIGHT H, Urine Color YEL, Urine Clarity CLEAR, Urine pH 6.5, Ur Specific [place] 1.020, Urine Protein TRACE H, Urine Ketones NEG, Urine Nitrite NEG, Urine Bilirubin NEG, Urine Urobilinogen 1.0, Ur Leukocyte Esterase NEG, Ur Microscopic SEDIMENT EXAMINED, Urine RBC 5-10 H, Urine WBC 1-3 H, Ur Epithelial Cells MOD H, Urine Bacteria RARE H, Urine Mucus RARE, Urine Hemoglobin TRACE-INTACT, Urine Glucose NEG 10/28/17 1320: Anion Gap 6, Estimated GFR 50 L, BUN/Creatinine Ratio 22.7, Glucose 174 H, Calcium 9.0, Phosphorus 3.3, Magnesium 1.8, Total Bilirubin 0.9, AST 29, ALT 35, Alkaline Phosphatase 69, Total Protein 7.1, Albumin 3.6, Globulin 3.5, Albumin/ Globulin Ratio 1.0 L, CBC w Diff NO MAN DIFF REQ, RBC 5.10, MCV 69.4 L, MCH 21.4 L, MCHC 30.8 L, RDW 17.7 H, MPV 9.6, Gran % 81.8 H, Lymphocytes % 10.5 L, Monocytes % 6.1, Eosinophils % 1.2, Basophils % 0.4, Absolute Granulocytes 7.4 H, Absolute Lymphocytes 0.9 L, Absolute Monocytes 0.5, Absolute Eosinophils 0.1, Absolute Basophils 0 Initial ED EKG: normal axis, normal intervals, nonspecific ST T wave chg, Conduction delay. Prior EKG: unchanged Comments: Ms Kaur was able to ambulate to the bathroom using a walker. Negative for unsteadiness while using ambulatory assist device. Patient demonstrating both capacity and competency, alert and oriented 4 without any neurological deficits. Departure Departure Disposition: HOME OR SELF CARE Condition: Stable Clinical Impression Primary Impression: Generalized weakness Referrals: Bebo GONSALEZ,Singh Tafoya (PCP/Family) Departure Forms: Customer Survey General Discharge Information Comments Please note that there might be incidental findings in your evaluation that are unrelated to the current emergency department visit. Please notify your primary care doctor about this emergency department visit in order to obtain and review all of the testing performed so that these incidental findings can be monitored as needed. If you had an x-ray performed, please understand that some fractures may not be seen on the initial set of x-rays. If your symptoms persist you might need a repeat set of x-rays to check for such a fracture. If you had a laceration evaluated, please understand that foreign bodies such as glass or wood may not be visible to the naked eye or on plain x-rays. If the wound becomes red, swollen, increasingly more painful or if there is any drainage from the wound, please have it reevaluated by a physician for the possibility of a retained foreign body. If you're unable to follow up as outlined in the discharge instructions please return to the emergency department. Critical Care Note Critical Care Note Critical Care Time: non-applicable
--- NOTE | 2017-10-28 18:29 | CT SCAN REPORT ---
EXAMINATION: CT HEAD WITHOUT CONTRAST CLINICAL INFORMATION: Trauma. COMPARISON: CT scan of the head 08/01/2017. TECHNIQUE: Contiguous axial imaging was performed from the skull base to vertex without intravenous administration of contrast. DLP: 614.1 mGy-cm FINDINGS: There is no evidence of acute intracranial hemorrhage or territorial infarction. No abnormal mass effect or midline shift is seen. Still to white matter differentiation is well preserved. No extra-axial fluid collections are identified. The ventricles are normal in size. There is no abnormal attenuation within the brain parenchyma. There are atheromatous calcifications of the cavernous internal carotid arteries. There are no acute osseous findings. There is hyperostosis frontalis interna. There are no large scalp contusions or hematomas. The visualized mastoid air cells are well-aerated. The frontal sinuses are poorly pneumatized; the other paranasal sinuses are well-aerated. IMPRESSION: 1. There are no acute bleeds or territorial infarcts. 2. There are no acute osseous findings, and there are no large scalp contusions or hematomas.
[2017-10-28 19:12] VITALS: BP 158/94
== END 2017-10-28 19:20 ==
LOC: ERH 12:36
PROVIDERS: Emergency Medicine
DX: R53.1 Weakness (principal); I10 Essential (primary) hypertension; E11.21 Type 2 diabetes mellitus with diabetic nephropathy; Z79.84 Long term (current) use of oral hypoglycemic drugs; Z79.82 Long term (current) use of aspirin; D64.9 Anemia, unspecified; Z87.891 Personal history of nicotine dependence
CPT/HCPCS: 81001; 93005; 93010